=== PATIENT | female | born 1950 | race African-American/Black ===

== ENCOUNTER 2020-12-13 12:12 | Inpatient (IN) | payer MEDICARE, MEDICAID, SELFPAY ==
[2020-12-13] VITALS (91 sets, daily range): BP systolic 66–153; BP diastolic 25–120; PULSE 63–78; RESP 8–29; TEMP 36.5–36.7; O2SAT 93–100; BMI 32.8
--- NOTE | ~2020-12-13 | XR_ITS ---
XR chest 1V portable 12/13/2020 12:42 Indication: Cough and weakness Procedure: AP portable chest Comparison: 05/11/2019 Findings: There is left basilar airspace disease. Cardiomegaly. There is extensive atherosclerosis of the descending thoracic aorta. No edema or pneumothorax. Elevated right diaphragm appears chronic. Impression: 1: Left basilar airspace disease, atelectasis versus pneumonia. Reviewed, dictated and finalized at location B. VE TAILOR Impression: 1: Left basilar airspace disease, atelectasis versus pneumonia.
--- NOTE | 2020-12-13 13:50 | ED.GENADULT ---
HPI - General Adult General Chief complaint: Unspecified Stated complaint: low bp Time Seen by Provider: 12/13/20 12:19 History of Present Illness HPI narrative: Patient is a 70-year-old female who presents the emergency department with chief complaint of low blood pressure. The patient was sent from a local retirement after they noticed that her blood pressure was low today they also noticed that her blood sugars were reading high. The patient currently has no complaints but does have difficulty providing history due to a prior stroke. The patient currently has no complaints other than feeling cold. Related Data Home Medications Medication Instructions Recorded Confirmed acetaminophen [Tylenol] 650 mg PO BID PRN 12/13/20 12/13/20 atorvastatin 20 mg PO DAILY 12/13/20 12/13/20 baclofen 10 mg PO BID 12/13/20 12/13/20 buspirone 10 mg PO BID 12/13/20 12/13/20 clonazepam 0.5 mg PO BID 12/13/20 12/13/20 ergocalciferol (vitamin D2) 50,000 unit PO MONTHLY 12/13/20 12/13/20 fluticasone furoate-vilanterol 1 inh INHALATION DAILY 12/13/20 12/13/20 [Breo Ellipta] gabapentin 300 mg PO TID 12/13/20 12/13/20 hydrocodone-acetaminophen 1 tablet PO HS 12/13/20 12/13/20 insulin aspart U-100 [Novolog 18 unit SUBCUT TID 12/13/20 12/13/20 Flexpen U-100 Insulin] insulin detemir U-100 [Levemir 60 unit SUBCUT BID 12/13/20 12/13/20 FlexTouch U-100 Insuln] ipratropium-albuterol 3 ml INHALATION Q4H PRN 12/13/20 12/13/20 loratadine 10 mg PO DAILY PRN 12/13/20 12/13/20 mirtazapine 15 mg PO HS 12/13/20 12/13/20 ondansetron HCl [Zofran] 4 mg PO Q8H PRN 12/13/20 12/13/20 primidone 100 mg PO DAILY 12/13/20 12/13/20 sertraline 50 mg PO DAILY 12/13/20 12/13/20 Allergies Allergy/AdvReac Type Severity Reaction Status Date / Time iodine Allergy Unknown Unknown Verified 12/14/20 11:18 Penicillins Allergy Unknown Unknown Verified 12/14/20 11:18 Sulfa (Sulfonamide Allergy Unknown Unknown Verified 12/14/20 12:28 Antibiotics) sulfur dioxide Allergy Unknown Unknown Verified 12/14/20 12:28 Review of Systems Review of Systems: Narrative: A 10 system review of systems was completed on the patient and is negative except for what is stated in the HPI. Nursing and ancillary documentation was reviewed. [facility] Past Medical History Medical History (Updated 12/14/20 @ 14:40 by Alecia Cunningham MD) Breast cancer Left breast biopsy from 2017 was ER positive [place] positive with no evidence of treatment Chronic respiratory failure with hypoxia, on home O2 therapy 2 L nasal cannula CVA (cerebral vascular accident) Dementia Possibly vascular Folate deficiency anemia 2016 GERD (gastroesophageal reflux disease) Hyperlipidemia Insulin dependent diabetes mellitus Obstructive sleep apnea on CPAP Osteoporosis Severe recurrent major depressive disorder with psychosis Ulcerative colitis Surgical History Surgical History (Updated 12/14/20 @ 03:00 by Razia Fraser DO) Hx of cholecystectomy Laparoscopic cholecystectomy May 2019 Family History Family History Other Unknown family medical history Social History Social History (Updated 12/14/20 @ 03:04 by Razia Fraser DO) Social History: Patient is a long-term resident at [facility]. Primary care provider: John Rojas Code status: Full code Healthcare power of state attorney: Elaina Whitfield Smoking status: Never smoker Alcohol intake: never Substance use: never Substance use type: does not use Spiritual care concerns: No Comments Past medical history significant for CVA Social history patient is a resident of a local retirement Exam Narrative: Exam Narrative: GENERAL: Well-appearing, well-nourished, and in no acute distress. HEAD: Normocephalic, atraumatic. EYES: PERRLA and EOMI. ENT: Nares clear, no rhinorrhea or epistaxis. Mucous membranes moist. NECK: Supple. CHEST: Clear to auscultation
[2020-12-13] MEDS: ONDANSETRON INJ 4 MG/2 ML VIAL IV PUSH (13:55)
[2020-12-13] MEDS: SODIUM CHLORIDE 0.9% IV 1,000 ML 999 ML IV CONT ×3 (13:55→16:05)
[2020-12-13 13:58] LABS: Basophils Absolute Auto 0.1 K/mm3 (0.0-0.1); Basophils Percent Auto 0.7 % (0.2-1.2); Eosinophils Absolute Auto 0.1 K/mm3 (0-0.3); Eosinophils Percent Auto 0.4 % (0-4.4); Hematocrit 42.2 % (37.0-47.0); Hemoglobin 13.1 g/dL (12.0-15.0); Immature Granulocyte Absolute 0.16 K/mm3 (0.00-0.031); Immature Granulocyte Percent A 1.3 % (0-0.5); Lymphocytes Absolute Auto 1.29 K/mm3 (0.9-3.2); Lymphocytes Percent Auto 10.8 % (18.3-44.2); Mean Corpuscular Hemoglobin 28.8 pg (26-34); Mean Corpuscular Volume 92.7 fl (80-100); Mean Platelet Volume 11.3 fl (7.4-10.4); Monocytes Absolute Auto 0.4 K/mm3 (0.1-0.6); Monocytes Percent Auto 3.7 % (2.6-8.5); Neutrophils Absolute Auto 9.9 K/mm3 (1.3-6.7); Neutrophils Percent Auto 83.1 % (45.5-73.1); Platelet Count Result 222 k/mm3 (150-375); Red Blood Count 4.55 M/mm3 (4.2-5.4); Red Cell Distribution Width 14.9 % (11.5-14.5); White Blood Count 11.9 K/mm3 (4.5-10.0)
[2020-12-13 14:12] LABS: Lactic Acid Reflex 2.9 mmol/L (0.7-2.1)
[2020-12-13 15:08] LABS: Alanine Aminotransferase 35 U/L (4-35); Albumin Level 3.2 g/dL (3.5-5.1); Alkaline Phosphatase 75 U/L (38-126); Anion Gap 6 mmol/L (8-16); Aspartate Amino Transferase 52 U/L (14-36); Bilirubin,Total 0.3 mg/dL (0.2-1.3); Blood Urea Nitrogen 15 mg/dL (7-17); Calcium 8.1 mg/dL (8.4-10.2); Carbon Dioxide 27 mmol/L (22-30); Chloride 106 mmol/L (98-107); Estimated CRCL calculation 44 ml/min; Estimated Glomerular Filt Rate > 60; Glucose 289 mg/dL (65-105); Magnesium 1.7 mg/dL (1.6-2.3); Sodium 139 mmol/L (137-145)
[2020-12-13 15:12] LABS: Potassium 4.2 mmol/L (3.4-5.0)
[2020-12-13 15:24] LABS: Add Urine Microscopic? YES; Appearance Urine Cloudy (Clear); Bacteria Urine 3+ /hpf; Bilirubin Urine Negative (Negative); Blood Urine Negative (Negative); Color Urine Yellow (Yellow); Glucose Urine UA Negative (Negative); Ketones Urine Negative (Negative); Leukocyte Esterase Ur 3+ LEU/UL (Negative); Mucus Urine Rare /lpf; Nitrate Urine Negative (Negative); Protein Urine Negative (Negative); Squamous Epithelial Cell Urine Moderate /hpf (Few); Urobilinogen Urine Negative mg/dL (<2.0); WBC Urine >75 /hpf
[2020-12-13 16:56] LABS: Reflex Lactic Acid Yes or No Add Lactic
[2020-12-13] MEDS: SODIUM CHLORIDE 0.9% IV 1,000 ML 125 ML IV CONT (23:36)
[2020-12-14] VITALS (11 sets, daily range): BP systolic 103–141; BP diastolic 42–76; PULSE 68–92; RESP 16–22; TEMP 35.6–36.4; O2SAT 95–100
--- NOTE | 2020-12-14 01:51 | ADMGEN ---
This patient, Mehreen Collins, was admitted to IMU Room 206-02. Patient/family oriented to hospital policies and general routines including ID bracelet, bed and alarms, visiting hours, pain management, procedures, bathroom and other care routines, personal items, smoking policy, room service/diet, and visiting hours. Information on how to activate the Rapid Response Team has been discussed. Patient/Family are encouraged to report perceived risks to care and to ask questions if they do not understand what they are told or what they should do.
--- NOTE | 2020-12-14 02:36 | PM.IMHP ---
H&P: HPI History of Present Illness Date/Time: 12/14/20 01:00 Chief Complaint: Low blood pressure Narrative: Mehreen Collins is a 70 year old female with a past medical history of recurrent UTIs, dementia, CVA, ulcerative colitis, major depressive disorder with psychotic symptoms and type 2 diabetes mellitus who presented to the ER from [facility] via EMS due to low blood pressures. Patient's blood pressure was 77/39 on arrival to the ER. The patient has no acute complaints. She denies any dysuria. She cannot tell me if she has been having any hematuria. Denies any nausea or vomiting. Her complaint at this time is that she is just freezing. She has not had any fevers. She has chronic low back pain that is unchanged from baseline. She does not report any changes in the frequency of her bowels. She is dependent upon staff at the [place] for activities of daily living. She denies any chest pain or shortness of breath. She has not been having any cough or congestion. She was last hospitalized May 2019 due to sepsis from UTI. She is a fair historian and is alert and oriented x3 the time of my evaluation. However she later told the nurse that the year was 2031 and she was very concerned because she was commenced that her roommate was sleeping in the same bed with her. The patient has difficulty providing information due to prior stroke and some expressive deficits. Review of Systems Review of Systems: Narrative: 12 systems were reviewed with pertinent positives and negatives per HPI. Except as documented in the HPI, all other systems were reviewed and are negative. [facility] Past Medical History Medical History (Updated 12/14/20 @ 03:48 by Razia Fraser DO) Breast cancer Left breast biopsy from 2016 was ER positive [place] positive with no evidence of treatment Chronic respiratory failure with hypoxia, on home O2 therapy 2 L nasal cannula CVA (cerebral vascular accident) Dementia Possibly vascular Folate deficiency anemia 2016 GERD (gastroesophageal reflux disease) Hyperlipidemia Insulin dependent diabetes mellitus Obstructive sleep apnea on CPAP Osteoporosis Severe recurrent major depressive disorder with psychosis Ulcerative colitis Surgical History Surgical History (Updated 12/14/20 @ 03:00 by Razia Fraser DO) Hx of cholecystectomy Laparoscopic cholecystectomy May 2019 Family History Family History Other Unknown family medical history Social History Social History (Updated 12/14/20 @ 03:04 by Razia Fraser DO) Social History: Patient is a long-term resident at [facility]. Primary care provider: John Rojas Code status: Full code Healthcare power of patent prosecution attorney: Elaina Whitfield Smoking status: Never smoker Alcohol intake: never Substance use: never Substance use type: does not use Spiritual care concerns: No Meds Home Medications and Allergies Home Medications Medication Instructions Recorded Confirmed Type acetaminophen [Tylenol] 650 mg PO BID PRN 12/13/20 12/13/20 History atorvastatin 20 mg PO DAILY 12/13/20 12/13/20 History baclofen 10 mg PO BID 12/13/20 12/13/20 History buspirone 10 mg PO BID 12/13/20 12/13/20 History clonazepam 0.5 mg PO BID 12/13/20 12/13/20 History ergocalciferol (vitamin D2) 50,000 unit PO MONTHLY 12/13/20 12/13/20 History fluticasone furoate-vilanterol 1 inh INHALATION DAILY 12/13/20 12/13/20 History [Breo Ellipta] gabapentin 300 mg PO TID 12/13/20 12/13/20 History hydrocodone-acetaminophen 1 tablet PO HS 12/13/20 12/13/20 History insulin aspart U-100 [Novolog 18 unit SUBCUT TID 12/13/20 12/13/20 History Flexpen U-100 Insulin] insulin detemir U-100 [Levemir 60 unit SUBCUT BID 12/13/20 12/13/20 History FlexTouch U-100 Insuln] ipratropium-albuterol 3 ml INHALATION Q4H PRN 12/13/20 12/13/20 History loratadine 10 mg PO DAILY PRN 12/13/20 12/13/20 Hist
[2020-12-14 05:09] LABS: Hematocrit 35.8 % (37.0-47.0); Hemoglobin 10.8 g/dL (12.0-15.0); Mean Corpuscular HGB Conc 30.2 g/dl (32-36); Mean Corpuscular Hemoglobin 28.1 pg (26-34); Mean Platelet Volume 10.2 fl (7.4-10.4); Platelet Count Result 211 k/mm3 (150-375); Red Blood Count 3.85 M/mm3 (4.2-5.4); White Blood Count 10.5 K/mm3 (4.5-10.0)
[2020-12-14 05:53] LABS: Anion Gap 4 mmol/L (8-16); Blood Urea Nitrogen 13 mg/dL (7-17); Carbon Dioxide 27 mmol/L (22-30); Chloride 109 mmol/L (98-107); Estimated CRCL calculation 87 ml/min; Estimated Glomerular Filt Rate > 60; Glucose 137 mg/dL (65-105); Potassium 4.2 mmol/L (3.4-5.0); Sodium 140 mmol/L (137-145)
[2020-12-14 05:55] LABS: Hemoglobin A1C 8.3 % (<5.7)
--- NOTE | 2020-12-14 07:31 | PC.NURSE ---
Dr. Cunningham notified of critical trop on 17.400. Trop originally reported as normal of <0.012 at 1445 on 12/13/20. Critical value called this AM at 0724, with note attached of original value reported of <0.012. Called Jeannette, in lab and she's going to look into it . Notified Dr. Cunningham of situation. New order to draw another trop stat, so we can see what is going on with patient. If trop is still elevated, consult cardiology
[2020-12-14 07:36] LABS: Troponin I < 0.012 ng/mL (0.000-0.034)
--- NOTE | 2020-12-14 07:38 | PC.NURSE ---
Lab called with critical blood glucose. Finger stick also showed critical blood glucose of 51. Pt received breakfast tray at time of finger stick. Will allow pt to eat and recheck finger stick after pt has eaten tray. Treat as necessary per repeat finger stick
[2020-12-14 08:01] LABS: Troponin I < 0.012 ng/mL (0.000-0.034)
[2020-12-14] MEDS: GABAPENTIN 300 MG CAPSULE PO ×3 (08:44→17:09)
[2020-12-14] MEDS: SODIUM CHLORIDE 0.9% IV 1,000 ML 125 ML IV CONT (08:44)
[2020-12-14] MEDS: PRIMIDONE 50 MG TABLET 100 MG PO (08:44)
[2020-12-14] MEDS: BACLOFEN 10 MG TABLET PO ×2 (08:44→17:09)
[2020-12-14] MEDS: ENOXAPARIN 40 MG/0.4 ML SYRINGE SUB-Q (08:44)
[2020-12-14] MEDS: busPIRone HCL 10 MG TABLET PO ×2 (08:45→17:08)
[2020-12-14] MEDS: ATORVASTATIN 20 MG TABLET PO (08:45)
[2020-12-14] MEDS: SERTRALINE HCL 50 MG TABLET PO (08:45)
[2020-12-14] MEDS: INSULIN DETEMIR 100 UNITS/ML 60 UNITS SUB-Q ×2 (08:52→17:13)
[2020-12-14] MEDS: clonazePAM (*CRX) 0.5 MG TABLET PO ×2 (08:52→17:09)
[2020-12-14] MEDS: INSULIN ASPART (*BKC) 100 UNITS/ML 18 UNITS SUB-Q ×2 (08:52→12:32)
[2020-12-14 09:09] LABS: Glucose Point of Care 125 (65-105)
[2020-12-14 12:32] LABS: Glucose Point of Care 131 (65-105)
[2020-12-14] MEDS: LORATADINE 10 MG TABLET PO (12:32)
--- NOTE | 2020-12-14 14:32 | PM.IMPN ---
Progress Note: A&P Assessment and Plan (1) Acute UTI: Code(s): N39.0 - Urinary tract infection, site not specified Status: Acute Assessment and Plan: Treat with iv antibiotics, await cultures hopeful Dc donovan Am. 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 insulin use: with longwall machine operator helper use Qualified Code(s): E11.65 - Type 2 diabetes mellitus with hyperglycemia; Z79.4 - demo coordinator (current) use of insulin Code(s): E11.65 - Type 2 diabetes mellitus with hyperglycemia Status: Chronic Assessment and Plan: Accuchecks, SSI, continue home Levemir and mealtime bolus insulin (4) Obstructive sleep apnea on CPAP: Code(s): G47.33 - Obstructive sleep apnea (adult) (pediatric); Z99.89 - Dependence on other enabling machines and devices Status: Inactive Assessment and Plan: Continue pts home CPAP Subjective Date/time seen: 12/14/20 14:32 Exam Narrative: Exam Narrative: General: Obese Respiratory: Clear Cardiovascular: Regular rate, regular rhythm, 2+ bilateral radial pedal pulses Gastrointestinal: Soft, NT Skin: No pallor, no jaundice, normal temperature to palpation Musculoskeletal: No clubbing, no cyanosis, 1+ pitting edema Neurological: Alert oriented x3, speech is slow, his speech is high pitched and loud Psychiatric: Normal mood Objective Data Vital Signs Vital Signs: Vital Signs - 24 hr 12/13/20 14:45 12/13/20 14:46 12/13/20 15:00 Temperature Pulse Rate 70 68 69 Respiratory Rate 25 H 24 H 17 Blood Pressure 91/43 L Pulse Oximetry 99 99 98 12/13/20 15:01 12/13/20 15:02 12/13/20 15:08 Temperature Pulse Rate 70 69 70 Respiratory Rate 24 H 22 H 20 Blood Pressure 81/42 L 90/46 L Pulse Oximetry 98 98 99 12/13/20 15:15 12/13/20 15:16 12/13/20 15:30 Temperature Pulse Rate 67 67 65 Respiratory Rate 24 H 23 H 23 H Blood Pressure 87/49 L Pulse Oximetry 98 98 99 12/13/20 15:31 12/13/20 15:45 12/13/20 15:46 Temperature Pulse Rate 65 66 65 Respiratory Rate 22 H 22 H 22 H Blood Pressure 79/36 L 76/40 L Pulse Oximetry 100 99 98 12/13/20 15:55 12/13/20 15:56 12/13/20 15:59 Temperature Pulse Rate 69 68 70 Respiratory Rate 20 23 H 22 H Blood Pressure 84/60 L 75/32 L Pulse Oximetry 98 98 99 12/13/20 16:00 12/13/20 16:01 12/13/20 16:15 Temperature Pulse Rate 68 67 68 Respiratory Rate 23 H 21 H 23 H Blood Pressure 78/31 L Pulse Oximetry 99 98 96 12/13/20 16:16 12/13/20 16:30 12/13/20 16:31 Temperature Pulse Rate 67 67 Respiratory Rate 21 H 23 H 23 H Blood Pressure 66/30 L 68/29 L Pulse Oximetry 99 94 99 12/13/20 16:41 12/13/20 16:43 12/13/20 16:45 Temperature Pulse Rate 69 Respiratory Rate 21 H 20 Blood Pressure 66/25 L 90/40 L Pulse Oximetry 98 98 12/13/20 16:46 12/13/20 17:00 12/13/20 17:01 Temperature Pulse Rate Respiratory Rate 22 H 21 H 21 H Blood Pressure 70/30 L 83/34 L Pulse Oximetry 99 100 99 12/13/20 17:15 12/13/20 17:18 12/13/20 17:30 Temperature Pulse Rate Respiratory Rate 21 H 22 H 10 L Blood Pressure 68/35 L Pulse Oximetry 99 98 99 12/13/20 17:31 12/13/20 17:45 12/13/20 17:46 Temperature Pulse Rate Respiratory Rate 19 8 L Blood Pressure 123/78 120/46 L Pulse Oximetry 99 99 99 12/13/20 18:00 12/13/20 18:01 12/13/20 18:15 Temperature Pulse Rate Respiratory Rate 20 18 17 Blood Pressure 101/53 L Pulse Oximetry 99 98 96 12/13/20 18:16 12/13/20 18:17 12/13/20 18:19 Temperature Pulse Rate Respiratory Rate
--- NOTE | 2020-12-14 16:37 | PC.NURSE ---
Pt transferred into room 243 via bed from IMU, reviewed plan of care, pt oriented to new room and environment
--- NOTE | 2020-12-14 16:40 | PC.NURSE ---
This patient, Mehreen Collins, was transferred to [[id number]] on 12/14/20 at 1640. Personal belongings sent with patient. Report given to [KYLE Chacon @ [phone] ]. Appropriate documentation sent with patient.
[2020-12-14] MEDS: ACETAMINOPHEN 325 MG TABLET 650 MG PO (17:08)
[2020-12-14 17:27] LABS: Glucose Point of Care 89 (65-105)
[2020-12-14] MEDS: HYDROcodone/acetaminophen (*CRX) 5-325 MG TABLET 1 TAB PO (20:54)
[2020-12-14] MEDS: MIRTAZAPINE 15 MG TABLET PO (20:55)
[2020-12-14 21:32] LABS: Glucose Point of Care 199 (65-105)
[2020-12-15] VITALS (8 sets, daily range): BP systolic 130–139; BP diastolic 50–58; PULSE 51–78; RESP 16–22; TEMP 36–36.5; O2SAT 94–100
[2020-12-15] MEDS: ACETAMINOPHEN 325 MG TABLET 650 MG PO ×2 (06:34→15:35)
[2020-12-15 07:48] LABS: Glucose Point of Care 74 (65-105)
[2020-12-15] MEDS: ENOXAPARIN 40 MG/0.4 ML SYRINGE SUB-Q (08:29)
[2020-12-15] MEDS: clonazePAM (*CRX) 0.5 MG TABLET PO ×2 (08:30→17:07)
[2020-12-15] MEDS: ATORVASTATIN 20 MG TABLET PO (08:30)
[2020-12-15] MEDS: LORATADINE 10 MG TABLET PO (08:30)
[2020-12-15] MEDS: busPIRone HCL 10 MG TABLET PO ×2 (08:30→17:08)
[2020-12-15] MEDS: PRIMIDONE 50 MG TABLET 100 MG PO (08:31)
[2020-12-15] MEDS: BACLOFEN 10 MG TABLET PO ×2 (08:31→17:12)
[2020-12-15] MEDS: SERTRALINE HCL 50 MG TABLET PO (08:31)
[2020-12-15] MEDS: GABAPENTIN 300 MG CAPSULE PO ×3 (08:31→17:07)
--- NOTE | 2020-12-15 09:34 | PCSTNOTE ---
Please refer to the Bedside Swallow Evaluation in the EMR. Please note, silent aspiration cannot be ruled out at bedside.
--- NOTE | 2020-12-15 11:42 | PM.IMPN ---
Progress Note: A&P Assessment and Plan (1) Acute UTI: Code(s): N39.0 - Urinary tract infection, site not specified Status: Acute Assessment and Plan: Treat with iv antibiotics, await cultures hopeful Dc soon culture shows ecoli awaiting sensitivity (2) Sepsis: Qualifiers: Sepsis acute organ dysfunction status: unspecified Sepsis type: sepsis due to unspecified organism Qualified Code(s): A41.9 - Sepsis, unspecified organism Code(s): A41.9 - Sepsis, unspecified organism Status: Acute Assessment and Plan: BP is better continue iv rocephin awaiting UC (3) Type 2 diabetes mellitus with hyperglycemia: Qualifiers: Diabetes mellitus supervisor intermediates insulin use: with mcfp use Qualified Code(s): E11.65 - Type 2 diabetes mellitus with hyperglycemia; Z79.4 - shelter (current) use of insulin Code(s): E11.65 - Type 2 diabetes mellitus with hyperglycemia Status: Chronic Assessment and Plan: Accuchecks, SSI, continue home Levemir and mealtime bolus insulin (4) Obstructive sleep apnea on CPAP: Code(s): G47.33 - Obstructive sleep apnea (adult) (pediatric); Z99.89 - Dependence on other enabling machines and devices Status: Inactive Assessment and Plan: Continue pts home CPAP Subjective Date/time seen: 12/15/20 11:42 Young is a 70 year old female with a past medical history of recurrent UTIs, dementia, CVA, ulcerative colitis, major depressive disorder with psychotic symptoms and type 2 diabetes mellitus who presented to the ER from [facility] via EMS due to low blood pressures. Pt is found to have a UTI awaiting culture and sensitivities. Pt has a high pitched voice, which is her baseline, pt has not had a bowel movement for few days. Review of Systems Review of Systems: All systems reviewed & are unremarkable except as noted in HPI and below Exam Narrative: Exam Narrative: General: Obese Respiratory: Clear Cardiovascular: Regular rate, regular rhythm, 2+ bilateral radial pedal pulses Gastrointestinal: Soft, NT, mildly distended, BS present Skin: No pallor, no jaundice, normal temperature to palpation Musculoskeletal: No clubbing, no cyanosis, 1+ pitting edema Neurological: Alert oriented x3, speech is slow, his speech is high pitched and loud Psychiatric: Normal mood Objective Data Vital Signs Vital Signs: Vital Signs - 24 hr 12/14/20 16:19 12/14/20 16:35 12/14/20 20:00 Temperature 35.6 C L 36.1 C L Pulse Rate 77 77 Respiratory Rate 22 H 20 Blood Pressure 134/54 L 136/76 Pulse Oximetry 98 100 100 12/14/20 20:10 12/14/20 20:51 12/15/20 02:32 Temperature 36.1 C L Pulse Rate 70 73 Respiratory Rate 18 16 22 H Blood Pressure 141/53 H Pulse Oximetry 99 97 12/15/20 05:48 12/15/20 09:47 Temperature 36.0 C L Pulse Rate 66 Respiratory Rate 16 Blood Pressure 130/51 L Pulse Oximetry 100 94 Intake/Output Intake/Output: Intake & Output 12/12/20 12/13/20 12/14/20 12/15/20 23:59 23:59 23:59 23:59 Intake Total 3050 2749.1 586 Output Total 200 Balance 3050 2549.1 586 Meds/Results Medications: Active Medications Generic Name Dose Route Start Last Admin Trade Name Freq PRN Reason Stop Dose Admin Acetaminophen 650 mg 12/14/20 02:39 12/15/20 06:34 Acetaminophen 325 Mg Tablet PO 650 mg Q6H PRN Administration pain 1-10 and fever Hydrocodone Bitart/Acetaminophen 1 tab 12/14/20 21:00 12/14/20 20:54 Hydrocodone/Acetaminophen (*Crx) 5-325 Mg Tablet PO 1 tab HS YONG Administration Albuterol 2.5 mg 12/14/20 03:11 Albuterol Sulfate Neb 2.5 Mg/3 Ml Inh INHALATION Q4HRT PRN sob Atorvastatin Calcium 20 mg 12/14/20 09:00 12/15/20 08:30 Atorvastatin 20 Mg Tablet PO 20 mg DAILY YONG Administration Baclofen 10 mg 12/14/20 09:00 12/15/20 08:31 Baclofen 10 Mg Tablet PO 10 mg BID YONG Administration Budesonide/F
[2020-12-15 11:53] LABS: Glucose Point of Care 146 (65-105)
[2020-12-15 12:07] LABS: Glucose Point of Care 139 (65-105)
[2020-12-15] MEDS: INSULIN ASPART (*BKC) 100 UNITS/ML 18 UNITS SUB-Q ×2 (12:43→17:20)
[2020-12-15] MEDS: BISACODYL 10 MG SUPPOSITORY RECTAL (12:51)
--- NOTE | 2020-12-15 14:33 | PC.NURSE ---
On 12/15/20, the student, [ Denise Galvez], provided care and completed [facility] documentation on this patient. I have reviewed the student's documentation and agree with the findings.
[2020-12-15] MEDS: ALBUTEROL SULFATE NEB 2.5 MG/3 ML INH INHALATION (16:55)
[2020-12-15] MEDS: IPRATROPIUM BR 0.02% INH SOLN 0.5 MG/2.5 ML VIAL INHALATION (16:57)
[2020-12-15] MEDS: ALBUTEROL SULFATE NEB 2.5 MG/0.5 ML INH (16:57)
[2020-12-15] MEDS: INSULIN DETEMIR 100 UNITS/ML 30 UNITS SUB-Q (17:21)
[2020-12-15 18:13] LABS: Glucose Point of Care 124 (65-105)
[2020-12-15] MEDS: HYDROcodone/acetaminophen (*CRX) 5-325 MG TABLET 1 TAB PO (20:35)
[2020-12-15] MEDS: MIRTAZAPINE 15 MG TABLET PO (20:36)
[2020-12-15 20:53] LABS: SARS-CoV-2 RNA PCR Negative
[2020-12-15 21:33] LABS: Glucose Point of Care 113 (65-105)
[2020-12-16] MEDS: ACETAMINOPHEN 325 MG TABLET 650 MG PO ×2 (04:56→10:56)
[2020-12-16 05:00] VITALS: BP 152/73; PULSE 75; RESP 18; TEMP 36.3; O2SAT 97
[2020-12-16 08:04] LABS: Glucose Point of Care 112 (65-105)
--- NOTE | 2020-12-16 08:34 | PM.DS ---
DS: Admitting Diagnosis Admitting Diagnosis Admitting Diagnosis: Low blood pressure DS: Discharge Diagnosis Discharge Diagnosis (1) Acute UTI: Code(s): N39.0 - Urinary tract infection, site not specified Status: Acute Assessment and Plan: Treat with iv rcephin, culture shows ecoli sensitive to nitrofurantoin (2) Sepsis: Qualifiers: Sepsis acute organ dysfunction status: unspecified Sepsis type: sepsis due to unspecified organism Qualified Code(s): A41.9 - Sepsis, unspecified organism Code(s): A41.9 - Sepsis, unspecified organism Status: Resolved Assessment and Plan: BP is better (3) Type 2 diabetes mellitus with hyperglycemia: Qualifiers: 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 insulin 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: with fdc use Qualified Code(s): E11.65 - Type 2 diabetes mellitus with hyperglycemia; Z79.4 - longterm (current) use of insulin Code(s): E11.65 - Type 2 diabetes mellitus with hyperglycemia Status: Chronic Assessment and Plan: Accuchecks, SSI, reduce Levemir and mealtime bolus insulin (4) Obstructive sleep apnea on CPAP: Code(s): G47.33 - Obstructive sleep apnea (adult) (pediatric); Z99.89 - Dependence on other enabling machines and devices Status: Inactive Assessment and Plan: Continue pts home CPAP DS: Summary Hospital Course Hospital Course: Brandi Collins is a 70 year old female with a past medical history of recurrent UTIs, dementia, CVA, ulcerative colitis, major depressive disorder with psychotic symptoms and type 2 diabetes mellitus who presented to the ER from [facility] via EMS due to low blood pressures. Bp were corrected with fluids, pt was found to have UTI treated with IV Rocephin or 3 days and transitioned to nitrofurantoin.Troponin was reported high but this was a error and was rechecked to be normal. Pt is stable on day of discharge. UC shows Ecoli sensitive to nitrofurantoin. Time Spent with Patient Time attestation: Total time spent providing and/or coordinating discharge services:40 minutes on day of discharge Exam Narrative: Exam Narrative: General: Obese Respiratory: Clear Cardiovascular: Regular rate, regular rhythm, 2+ bilateral radial pedal pulses Gastrointestinal: Soft, NT, mildly distended, BS present Skin: No pallor, no jaundice, normal temperature to palpation Musculoskeletal: No clubbing, no cyanosis, 1+ pitting edema Neurological: Alert oriented x3, speech is slow, his speech is high pitched and loud Psychiatric: Normal mood DS: Data Data Completed and Pending Labs on day of discharge: Labs from last 24 hours 12/16/20 12/15/20 12/15/20 07:58 20:40 17:14 POC Capillary Glucose 112 H 113 H 124 H SARS-CoV-2 RNA (RT-PCR) 12/15/20 12/15/20 12/15/20 12:04 11:42 00:59 POC Capillary Glucose 139 H 146 H SARS-CoV-2 RNA (RT-PCR) Negative Preliminary micro results at discharge 12/13/20 13:45 Blood Culture - Preliminary Blood 12/13/20 14:43 Blood Culture - Preliminary Blood Discharge Plan Discharge Attending physician on discharge: Alecia Cunningham Discharging Clinician: Alecia Cunningham Patient Disposition: [place] Residential/Asst Living Activity: as tolerated Diet: diabetic Discharge Instructions: Per Care Coordination, [facility]. Patient Instructions: Antibiotic Form Stand Alone Forms: General Discharge Information Follow-up/Referrals: Bob,John Wiggins MD [Primary Care Provider] - Discharge Medications: New polyethylene glycol 3350 [Miralax] 17 gram Powder In Packet 17 g PO QAM Qty: 30 RF: 0 nitrofurantoin macrocrystal 100 mg capsule 100 mg PO Q12H Qty: 28 RF: 0 Continued atorvastatin 20 mg tablet 20 mg PO DAILY RF: 0 clonazepam 0.5 mg tablet 0.5 mg PO BID RF: 0 baclofen 10 mg tablet 10 mg PO BID RF: 0 buspirone 10 mg tablet 10 mg PO BID RF: 0 gabape
[2020-12-16] MEDS: BACLOFEN 10 MG TABLET PO ×2 (08:46→16:53)
[2020-12-16] MEDS: polyethylene glycoL 3350 17 GM POWD.PACK PO (08:46)
[2020-12-16] MEDS: PRIMIDONE 50 MG TABLET 100 MG PO (08:48)
[2020-12-16] MEDS: ATORVASTATIN 20 MG TABLET PO (08:48)
[2020-12-16] MEDS: ENOXAPARIN 40 MG/0.4 ML SYRINGE SUB-Q (08:48)
[2020-12-16] MEDS: busPIRone HCL 10 MG TABLET PO ×2 (08:49→16:49)
[2020-12-16] MEDS: GABAPENTIN 300 MG CAPSULE PO ×3 (08:49→16:50)
[2020-12-16] MEDS: SERTRALINE HCL 50 MG TABLET PO (08:49)
[2020-12-16 08:50] VITALS: RESP 18; O2SAT 97
[2020-12-16] MEDS: clonazePAM (*CRX) 0.5 MG TABLET PO ×2 (08:50→16:53)
[2020-12-16] MEDS: INSULIN DETEMIR 100 UNITS/ML 30 UNITS SUB-Q ×2 (09:07→16:53)
[2020-12-16 11:49] LABS: Glucose Point of Care 145 (65-105)
[2020-12-16 14:00] VITALS: BP 148/62; PULSE 78; RESP 27; TEMP 36.3; O2SAT 98
[2020-12-16 16:47] LABS: Glucose Point of Care 163 (65-105)
[2020-12-16] MEDS: HYDROcodone/acetaminophen (*CRX) 5-325 MG TABLET 1 TAB PO (20:28)
[2020-12-16] MEDS: MIRTAZAPINE 15 MG TABLET PO (20:28)
[2020-12-16 20:53] LABS: Glucose Point of Care 210 (65-105)
[2020-12-16 22:00] VITALS: BP 121/50; PULSE 85; RESP 18; TEMP 36.8; O2SAT 94
[2020-12-17 01:54] VITALS: O2SAT 94
[2020-12-17 05:00] VITALS: BP 154/92; PULSE 58; RESP 18; TEMP 36.5; O2SAT 98
== END 2020-12-17 05:10 | DRG 872 ==
LOC: ANHED 16:58 → ANHIMU 12-14 13:07 → ANH2MED 12-20 17:09 → ANHIMU 12-20 17:09
PROVIDERS: Internal Medicine; Physician Assistant; Admitting Provider Family Medicine; Emergency Provider Emergency Medicine; PCP General Practice; Visit Provider Family Medicine
DX: A41.9 Sepsis, unspecified organism (principal); N39.0 Urinary tract infection, site not specified; J96.11 Chronic respiratory failure with hypoxia; F33.3 Major depressive disorder, recurrent, severe with psychotic symptoms; F03.90 Unspecified dementia, unspecified severity, without behavioral disturbance, psychotic disturbance, mood disturbance, and anxiety; B96.20 Unspecified Escherichia coli [E. coli] as the cause of diseases classified elsewhere; Z20.822 Contact with and (suspected) exposure to COVID-19; E11.65 Type 2 diabetes mellitus with hyperglycemia; G47.33 Obstructive sleep apnea (adult) (pediatric); K21.9 Gastro-esophageal reflux disease without esophagitis; E78.5 Hyperlipidemia, unspecified; M81.0 Age-related osteoporosis without current pathological fracture; Z79.4 Long term (current) use of insulin; Z79.899 Other long term (current) drug therapy; Z85.3 Personal history of malignant neoplasm of breast; Z86.73 Personal history of transient ischemic attack (TIA), and cerebral infarction without residual deficits; Z87.19 Personal history of other diseases of the digestive system; Z88.1 Allergy status to other antibiotic agents; Z88.2 Allergy status to sulfonamides; Z99.81 Dependence on supplemental oxygen; Z99.89 Dependence on other enabling machines and devices
CPT/HCPCS: 36415; 71045; 80048; 80053; 81001; 82948; 83036; 83605; 83735; 84484; 85025; 85027; 87040; 87077; 87086; 87088; 87186; 92610; 94640; 96361; 96365; 96375; 99285; A9270; C1751; C9803; J0696; J1650; J1815; J2405; J7030; U0003; U0005

== ENCOUNTER 2021-09-05 09:09 | Inpatient (IN) | payer OTHER, SELFPAY ==
[2021-09-05] VITALS (32 sets, daily range): BP systolic 123–162; BP diastolic 56–109; PULSE 82–112; RESP 16–32; TEMP 36.2–36.5; O2SAT 92–100; BMI 27.2
--- NOTE | ~2021-09-05 | XR_ITS ---
EXAMINATION: XR abdomen NG/feed tube insert EXAM DATE: 09/05/2021 09:42 INDICATION: GI bleed, NG tube insertion.. TECHNIQUE: Frontal projection(s) of the abdomen for interpretation. Comparison is made to prior exami nation from 2017. FINDINGS: Feeding tube tip and side-port project over gastric antrum, adequate. There are multiple l oops of moderately distended air-filled small bowel, probably ileus given history provided. Obstructi on not excludable. Small amount of left basilar atelectasis or infiltrate. There is no organomegaly. Calcification along the descending thoracic aorta. IMPRESSION: 1. Nasogastric tube in position. 2. Moderately distended small bowel, ileus or less likely small bowel obstruction. Reviewed, dictated and finalized at location A. IMPRESSION: 1. Nasogastric tube in position. 2. Moderately distended small bowel, ileus or less likely small bowel obstruct ion.
--- NOTE | ~2021-09-05 | XR_ITS ---
XR abdomen/kub 1V DATE: 09/08/2021 18:26 INDICATION: Abdominal pain TECHNIQUE: Portable supine AP views COMPARISON: 09/23/2021 upper gastrointestinal series 09/05/2021 CT abdomen pelvis FINDINGS: Severe descending thoracic aortic calcification. Heart size appears within normal limits. Status post cholecystectomy. Barium contrast material is noted primarily in the colon. Colonic diverticula are noted. There is gaseous distention of multiple nondilated small bowel segments. IMPRESSION: Status post cholecystectomy Diverticulosis of the colon Nondilated gas containing small bowel segments,, suggesting ileus Reviewed, dictated and finalized at Location [facility]. Reviewed, dictated and finalized at location A.
--- NOTE | ~2021-09-05 | XR_ITS ---
EXAMINATION: XR UGI water soluble w sbs EXAM DATE: 09/06/2021 12:12 INDICATION: Dilated bowel. 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 Omnipaque/water soluble solution administered for upper GI and small bowel exam performed by radiologist Pedro Bah M.D.. Pulsed dose reduction fluoroscopy was used with fluoroscopic time of less than 0.1 minutes. The DAP for this procedure was 20 Gycm2. A total of 15 images obtained for the exam. Correlation is made to CT abdomen pelvis from yesterday. FINDINGS: The stomach is unremarkable. By the 1 hour projection, contrast is within multiple loops of normal calibered jejunum. By the 2 hour projection contrast as a multiple loops of mildly dilated mi d ileum. By the 3 hour image contrast has entered the cecum. Ileal and jejunal fold patterns are norm al. There is no small bowel wall thickening or mass effect displacing small bowel. There are no int raluminal filling defects identified. Terminal ileal region unremarkable. Contrast reached the colo n between 2.5 and 3 hours, mildly delayed. A 3.5 hour image was also obtained which demonstrated mor e contrast within the cecum. IMPRESSION: Mildly dilated mid ileum, mildly delayed transit time of 2.5-3 hours, probably ileus. Lo w-grade partial obstruction not excludable. Reviewed, dictated and finalized at location A. IMPRESSION: Mildly dilated mid ileum, mildly delayed transit time of 2.5-3 jair rs, probably ileus. Low-grade partial obstruction not excludable.
--- NOTE | ~2021-09-05 | CT_ITS ---
EXAMINATION: CT abdomen pelvis wo con EXAM DATE: 09/05/2021 10:48 INDICATION: abd pain, GI bleeding (upper), distention. TECHNIQUE: Spiral CT of the abdomen and pelvis was performed without contrast. Axial, coronal and s agittal images of the abdomen and pelvis were reviewed. The dose-length product (DLP) for this exami nation was 1253.35 mGy-cm. The exposure was tailored according to patient size (auto mA exposure con trol), and iterative reconstruction (ASIR) was used as additional dose reduction technique. Compariso n is made to prior examination from 05/21/2019. FINDINGS: The liver, spleen, adrenal glands and pancreas are unremarkable. Gallbladder is unremarkab le. No biliary obstruction. There is no nephrolithiasis or hydronephrosis. The uterus is not iden tified and has likely been surgically resected. The bladder is unremarkable. There is no retroperit zhou or pelvic lymphadenopathy. There is moderate scattered arteriosclerotic disease. There are no findings to suggest appendicitis. There is a feeding tube in position. There is moderat celia distended small bowel with air and fluid, no transition point. Appearance suggest ileus. There is mild sigmoid colonic diverticulosis. There is no adjacent inflammatory change to suggest diverticul itis. There is expected amount of colonic stool. No free intraperitoneal gas. The heart is normal in size. There are no pericardial or pleural effusions. Bibasilar subsegmental atelectasis. Calcif ied distal abdominal aorta. There are no osteoblastic or osteolytic lesions identified. IMPRESSION: 1. Moderately distended small bowel without discrete transition point, suggesting ileus rather than obstruction. Feeding tube in position. 2. Bibasilar subsegmental atelectasis. 3. Mild sigmoid diverticulosis. Reviewed, dictated and finalized at location A. IMPRESSION: 1. Moderately distended small bowel without discrete transition point, suggest ing ileus rather than obstruction. Feeding tube in position. 2. Bibasilar subsegmental atelectasis. 3. Mild sigmoid diverticulosis.
--- NOTE | 2021-09-05 09:32 | ED.GIBLEED ---
HPI - GI Bleed General Chief complaint: GI Bleed Stated complaint: ?GI BLEED Source: patient and EMS Mode of arrival: EMS Limitations: no limitations History of Present Illness HPI Narrative: The patient is a 71 year old female with a past medical history of Type II DM, recurrent UTI, dementia, CVA, ulcerative colitis, depression, presenting for evaluation of coffee-ground emesis. This morning, patient had a large volume episode of emesis that was brown in coloration. Patient is reporting nausea, abdominal pain and distention. Pain is located throughout the abdomen. Denies back pain, chest pain, shortness of breath. Patient denies fever or chills. Denies any nataliya urinary symptoms. The time of assessment, patient does have evidence of coffee-ground emesis on clothing. Patient is not on any anticoagulation. Related Data Home Medications Medication Instructions Recorded Confirmed Breo Ellipta 1 inh INHALATION DAILY 12/13/20 12/13/20 acetaminophen [Tylenol] 650 mg PO BID PRN 12/13/20 12/13/20 atorvastatin 20 mg PO DAILY 12/13/20 12/13/20 baclofen 10 mg PO BID 12/13/20 12/13/20 buspirone 10 mg PO BID 12/13/20 12/13/20 clonazepam 0.5 mg PO BID 12/13/20 12/13/20 ergocalciferol (vitamin D2) 50,000 unit PO MONTHLY 12/13/20 12/13/20 gabapentin 300 mg PO TID 12/13/20 12/13/20 hydrocodone-acetaminophen 1 tablet PO HS 12/13/20 12/13/20 ipratropium-albuterol 3 ml INHALATION Q4H PRN 12/13/20 12/13/20 loratadine 10 mg PO DAILY PRN 12/13/20 12/13/20 mirtazapine 15 mg PO HS 12/13/20 12/13/20 ondansetron HCl [Zofran] 4 mg PO Q8H PRN 12/13/20 12/13/20 primidone 100 mg PO DAILY 12/13/20 12/13/20 sertraline 50 mg PO DAILY 12/13/20 12/13/20 Allergies Allergy/AdvReac Type Severity Reaction Status Date / Time iodine Allergy Unknown Unknown Verified 12/14/20 11:18 Penicillins Allergy Unknown Unknown Verified 12/14/20 11:18 Sulfa (Sulfonamide Allergy Unknown Unknown Verified 12/14/20 12:28 Antibiotics) sulfur dioxide Allergy Unknown Unknown Verified 12/14/20 12:28 Review of Systems Review of Systems: CONSTITUTIONAL: Denies fever EYES: Denies visual changes ENT: Denies rhinorrhea, congestion CARDIOVASCULAR: Denies chest pain, palpitations, or edema. RESPIRATORY: Denies cough or dyspnea. GASTROINTESTINAL: Reports abdominal pain, nausea and vomiting GENITOURINARY: Denies dysuria or hematuria. SKIN: Denies rash or itching. MUSCULOSKELETAL: Denies back pain NEUROLOGIC: Denies headache PSYCHIATRIC: History of depression [facility] Past Medical History Medical History Breast cancer Left breast biopsy from 2017 was ER positive AL positive with no evidence of treatment Chronic respiratory failure with hypoxia, on home O2 therapy 2 L nasal cannula CVA (cerebral vascular accident) Dementia Possibly vascular Folate deficiency anemia 2017 GERD (gastroesophageal reflux disease) Hyperlipidemia Insulin dependent diabetes mellitus Obstructive sleep apnea on CPAP Osteoporosis Severe recurrent major depressive disorder with psychosis Ulcerative colitis Surgical History Surgical History Hx of cholecystectomy Laparoscopic cholecystectomy May 2019 Family History Family History Other Unknown family medical history Social History Social History Social History: Patient is a long-term resident at [facility]. Primary care provider: John oRjas Code status: Full code Healthcare power of business attorney: Elaina Whitfield Smoking status: Never smoker Alcohol intake: never Substance use: never Substance use type: does not use Spiritual care concerns: No Exam Narrative: GENERAL: Awake, alert, conversant, coffee-ground emesis on clothing HEAD: Normocephalic, atraumatic. EYES: PERRLA and EOMI. ENT:
[2021-09-05 10:08] LABS: Basophils Absolute Auto 0.1 K/mm3 (0.0-0.1); Basophils Percent Auto 0.7 % (0.2-1.2); Eosinophils Percent Auto 0.1 % (0-4.4); Hematocrit 49.2 % (37.0-47.0); Hemoglobin 15.7 g/dL (12.0-15.0); Immature Granulocyte Absolute 0.08 K/mm3 (0.00-0.031); Immature Granulocyte Percent A 0.6 % (0-0.5); Lymphocytes Percent Auto 15.6 % (18.3-44.2); Mean Corpuscular HGB Conc 31.9 g/dl (32-36); Mean Corpuscular Hemoglobin 29.1 pg (26-34); Mean Corpuscular Volume 91.3 fl (80-100); Mean Platelet Volume 9.8 fl (7.4-10.4); Monocytes Absolute Auto 0.6 K/mm3 (0.1-0.6); Neutrophils Absolute Auto 11.2 K/mm3 (1.3-6.7); Platelet Count Result 287 k/mm3 (150-375); Red Blood Count 5.39 M/mm3 (4.2-5.4); Red Cell Distribution Width 14.1 % (11.5-14.5); White Blood Count 14.1 K/mm3 (4.5-10.0)
[2021-09-05 10:19] LABS: INR 1.1; Prothrombin Time 13.8 Seconds (11.1-14.7)
[2021-09-05 10:20] LABS: Partial Thromboplastin Time 30.5 SECONDS (22.3-36.8)
[2021-09-05 10:38] LABS: Alanine Aminotransferase 33 U/L (4-35); Albumin Level 4.1 g/dL (3.5-5.1); Alkaline Phosphatase 124 U/L (38-126); Anion Gap 8 mmol/L (8-16); Aspartate Amino Transferase 45 U/L (14-36); Bilirubin,Total 0.8 mg/dL (0.2-1.3); Blood Urea Nitrogen 11 mg/dL (7-17); Carbon Dioxide 29 mmol/L (22-30); Chloride 98 mmol/L (98-107); Estimated CRCL calculation 99 ml/min; Estimated Glomerular Filt Rate > 60; Glucose 385 mg/dL (65-110); Potassium 4.5 mmol/L (3.4-5.0); Sodium 135 mmol/L (137-145)
[2021-09-05] MEDS: PANTOPRAZOLE SODIUM IV 40 MG VIAL 80 MG IV PUSH (11:01)
[2021-09-05] MEDS: SODIUM CHLORIDE 0.9% IV 1,000 ML 80 ML IV CONT (12:55)
--- NOTE | 2021-09-05 13:20 | PC.NURSE ---
This patient, Mehreen Collins, was admitted to [facility] Surg Room 020-11 [id number]. Patient/family oriented to hospital policies and general routines including ID bracelet, bed and alarms, visiting hours, pain management, procedures, bathroom and other care routines, personal items, smoking policy, room service/diet, and visiting hours. Information on how to activate the Rapid Response Team has been discussed. Patient/Family are encouraged to report perceived risks to care and to ask questions if they do not understand what they are told or what they should do.
--- NOTE | 2021-09-05 13:26 | PC.NURSE ---
Pt states on admission flu shoot given at [facility]
--- NOTE | 2021-09-05 15:18 | WPDGICN ---
Assessment and Plan Assessment and plan (1) Ileus: Code(s): K56.7 - Ileus, unspecified Status: Acute Assessment and Plan: Patient with distended abdomen tympanic exam. CT scan and obstructive series consistent with either ileus or more likely partial small bowel obstruction. Bowel sounds are present. Would recommend NG tube decompression and after distention has improved then small bowel series should be performed. GI endoscopy is contraindicated in the face possible obstruction. Because of the coffee-ground emesis patient will be placed on proton pump inhibitor therapy. Likely this on the basis of stress gastritis. Her hemoglobin is stable at present suggesting minimal actual bleeding. (2) Coffee ground emesis: Code(s): K92.0 - Hematemesis Status: Acute Assessment and Plan: Suggestive of stress gastritis. Currently hemoglobin is stable. She has symptoms and signs suggesting possible small-bowel obstruction versus ileus. NG tube decompression advised initially and supportive care for now. 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: with equipment operator intermodal yard use Qualified Code(s): E11.65 - Type 2 diabetes mellitus with hyperglycemia; Z79.4 - terminal operations manager (current) use of insulin Code(s): E11.65 - Type 2 diabetes mellitus with hyperglycemia Status: Chronic (5) Obstructive sleep apnea on CPAP: Code(s): G47.33 - Obstructive sleep apnea (adult) (pediatric); Z99.89 - Dependence on other enabling machines and devices Status: Chronic GI Consult Note Consult date/time: 09/05/21 15:18 HPI: Mehreen Collins is a 71 year old female I am asked to see at the request of the ER because of coffee-ground emesis. Patient currently resident of [facility] because of dementia, stroke, diabetes. Patient is unable to give any intelligible history. Patient apparently had emesis at the [facility] this morning a blackish type material this prompted her to go to the emergency room. In the emergency room her abdomen was noted to be quite distended and tympanic. Abdominal x-ray and CT scan revealed marked distention of the small bowel. Suggesting either ileus or partial small-bowel obstruction. An NG tube was placed and a large amount of gastric coffee-ground like material was obtained. Patient is unable to give any additional history. 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 No evidence that any treatment was rendered. Cerebrovascular accident Chronic respiratory failure with hypoxia, on home O2 therapy 2 L nasal cannula. Dementia Folate deficiency anemia (2017) Gastroesophageal reflux disease Hyperlipidemia Insulin dependent diabetes mellitus Obstructive sleep apnea on CPAP Osteoporosis Severe recurrent major depressive disorder with psychosis Ulcerative colitis Surgical History Surgical History (Updated 09/05/21 @ 14:45 by Carmen Swanson PA-C) History of laparoscopic cholecystectomy (05/13/19) History of left breast biopsy (12/17/16) Family History Family History Other Unknown family medical history Social History Social History (Updated 09/05/21 @ 14:46 by Carmen Swanson PA-C) Social History: Healthcare power of workers compensation attorney: Elaina Whitfield, niece. Code status: Full code. Smoking status: Never smoker Second hand tobacco smoke exposure: No Alcohol intake: never Substance use: ne
[2021-09-05] MEDS: MORPHINE SULFATE (*CRX) 4 MG/ML INJ 2 MG IV PUSH ×3 (15:23→23:03)
[2021-09-05] MEDS: ONDANSETRON INJ 4 MG/2 ML VIAL IV PUSH (15:23)
--- NOTE | 2021-09-05 15:45 | PM.IMHP ---
H&P: HPI History of Present Illness Date/Time: 09/05/21 15:45 Chief Complaint: Vomiting. Narrative: This is a 71-year-old female with history of dementia, stroke, ulcerative colitis, type 2 diabetes mellitus, and depression with psychotic symptoms who presented to the emergency department earlier today via EMS from a local care home for evaluation of vomiting. She is a fair historian however some of the following history is supplemented via a review of her electronic medical records. According to the triage note, the patient had several episodes of emesis this morning and care home staff were worried that she may have a GI bleed due to almost coffee-ground like emesis and she was brought in for evaluation. The patient tells me she was feeling just fine when she went to bed last night but she was sick to her stomach when she got up this morning. She estimates that she vomited approximately 3 to 4 times prior to coming in. On arrival to the emergency department the patient was complaining of generalized abdominal discomfort and distension and she was found to have evidence of an ileus on CT. At the time my evaluation her biggest complaint is that of the NG tube being in place. She still has some mild discomfort in her abdomen but nothing significant. She has not had a bowel movement for 3 days and prior to that she has not noticed dark stools. Review of Systems Review of Systems: Twelve systems were reviewed. No fever, chills, or sweats. No recent cold or flu symptoms. She denies sick contacts. No chest pain or shortness of breath. She denies orthopnea, PND, and lower extremity edema. She states compliance with her CPAP at nighttime. No dysuria. Except as documented, all other systems were reviewed and are negative. 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 Patient denies and reports no treatment was rendered. Cerebrovascular accident Chronic respiratory failure with hypoxia, on home O2 therapy 2 L nasal cannula. Dementia Folate deficiency anemia (2017) Gastroesophageal reflux disease Hyperlipidemia Insulin dependent diabetes mellitus Obstructive sleep apnea on CPAP Osteoporosis Severe recurrent major depressive disorder with psychosis Ulcerative colitis Surgical History Surgical History (Updated 09/05/21 @ 14:45 by Carmen Swanson PA-C) History of laparoscopic cholecystectomy (05/13/19) History of left breast biopsy (12/17/16) Family History Family History Other Unknown family medical history Social History Social History (Updated 09/05/21 @ 14:46 by Carmen Swanson PA-C) Social History: Healthcare power of civil litigation attorney: Elaina Whitfield, niece. Code status: Full code. Smoking status: Never smoker Second hand tobacco smoke exposure: No Alcohol intake: never Substance use: never Substance use type: does not use Additional living arrangements comments: Patient is a long-term resident at [facility]. Additional occupation/education comments: Disabled. Meds Home Medications and Allergies Home Medications Medication Instructions Recorded Confirmed Type Breo Ellipta 1 inh INHALATION DAILY 12/13/20 09/05/21 History acetaminophen [Tylenol] 650 mg PO BID PRN 12/13/20 09/05/21 History atorvastatin 20 mg PO DAILY 12/13/20 09/05/21 History baclofen 10 mg PO BID 12/13/20 09/05/21 History buspirone 10 mg PO BID 12/13/20 09/05/21 History clonazepam 0.5 mg PO BID 12/13/20 09/05/21 History ergocalciferol (vitamin D2) 50,000 unit PO MONTHLY 12/13/20 09/05/21 History gabapentin 300 mg PO TID 12/13/20 09/05/21 History hydrocodone-acetaminophen 1 tablet PO HS 12/13/20 12/13/20 History ipratropium-albuterol 3 ml INHALATION Q4H PRN 12/13/20 12/13/20 History loratadine 10 mg PO DAILY PRN 12/13/20
[2021-09-05 16:37] LABS: Hematocrit 48.3 % (37.0-47.0); Hemoglobin 15.4 g/dL (12.0-15.0)
--- NOTE | 2021-09-05 16:42 | PC.NURSE ---
UA collected and sent to lab this shift
[2021-09-05 16:54] LABS: Glucose Point of Care 392 mg/dl (65-105)
[2021-09-05] MEDS: INSULIN ASPART (*BKC) 100 UNITS/ML SUB-Q (16:59)
[2021-09-05] MEDS: INSULIN GLARGINE (*BKC) 100 UNITS/ML 30 UNITS SUB-Q (16:59)
[2021-09-05 17:32] LABS: Add Urine Microscopic? YES; Appearance Urine Cloudy (Clear); Bacteria Urine 4+ /hpf; Bilirubin Urine Negative (Negative); Color Urine Amber (Yellow); Glucose Urine UA 3+ mg/dL (Negative); Ketones Urine Negative (Negative); Leukocyte Esterase Ur 3+ LEU/UL (Negative); Nitrate Urine Negative (Negative); Protein Urine 1+ mg/dL (Negative); RBC Urine 0-2 /hpf (0-2); Specific Grav Ur 1.016 (1.001-1.035); WBC Urine >75 /hpf
[2021-09-05 17:35] LABS: Blood Urine Negative (Negative)
[2021-09-05 17:48] LABS: Hemoglobin A1C 9.9 % (<5.7)
[2021-09-05 19:00] LABS: Glucose Point of Care 336 mg/dl (65-105)
[2021-09-05] MEDS: FLUTICASONE/SALMETEROL 115-21 MCG INHALER 1 PUFF 2 PUFF INHALATION (20:28)
[2021-09-05 21:08] LABS: Glucose Point of Care 328 mg/dl (65-105)
[2021-09-05] MEDS: INSULIN GLARGINE (*BKC) 100 UNITS/ML 15 UNITS SUB-Q (21:19)
[2021-09-05] MEDS: INSULIN ASPART (*BKC) 100 UNITS/ML 8 UNITS SUB-Q (22:27)
[2021-09-05 23:27] LABS: Glucose Point of Care 348 mg/dl (65-105)
[2021-09-05 23:48] LABS: Hematocrit 46.8 % (37.0-47.0); Hemoglobin 14.7 g/dL (12.0-15.0)
[2021-09-06] MEDS: MORPHINE SULFATE (*CRX) 4 MG/ML INJ 2 MG IV PUSH ×2 (04:24→08:14)
[2021-09-06 06:00] VITALS: BP 126/47; PULSE 87; RESP 18; TEMP 36.1; O2SAT 98
[2021-09-06 06:09] LABS: Hemoglobin 13.5 g/dL (12.0-15.0); Mean Corpuscular HGB Conc 31.4 g/dl (32-36); Mean Corpuscular Hemoglobin 29.3 pg (26-34); Mean Corpuscular Volume 93.5 fl (80-100); Mean Platelet Volume 10.8 fl (7.4-10.4); Platelet Count Result 182 k/mm3 (150-375); Red Cell Distribution Width 14.4 % (11.5-14.5); White Blood Count 14.6 K/mm3 (4.5-10.0)
[2021-09-06 06:19] LABS: Alanine Aminotransferase 26 U/L (4-35); Albumin Level 3.4 g/dL (3.5-5.1); Alkaline Phosphatase 87 U/L (38-126); Anion Gap 11 mmol/L (8-16); Aspartate Amino Transferase 30 U/L (14-36); Bilirubin,Total 0.6 mg/dL (0.2-1.3); Blood Urea Nitrogen 20 mg/dL (7-17); Calcium 8.8 mg/dL (8.4-10.2); Carbon Dioxide 25 mmol/L (22-30); Chloride 101 mmol/L (98-107); Estimated CRCL calculation 69 ml/min; Estimated Glomerular Filt Rate > 60; Glucose 304 mg/dL (65-110); Magnesium 1.7 mg/dL (1.6-2.3); Sodium 137 mmol/L (137-145)
[2021-09-06 06:56] LABS: Glucose Point of Care 288 mg/dl (65-105)
[2021-09-06] MEDS: SODIUM CHLORIDE 0.9% IV 1,000 ML 80 ML IV CONT ×2 (07:39→23:07)
--- NOTE | 2021-09-06 07:58 | WPDGIPROGNO ---
Progress Note: A&P Assessment and Plan (1) Ileus: Code(s): K56.7 - Ileus, unspecified Status: Acute Assessment and Plan: Patient with ileus although partial small-bowel obstruction cannot be excluded. Abdomen less distended today. NG tube decompression has continued. Would advise small-bowel follow-through with Gastrografin will be arranged today if possible. (2) Coffee ground emesis: Code(s): K92.0 - Hematemesis Status: Acute Assessment and Plan: Coffee-ground emesis noted at presentation. NG tube return was coffee-ground yesterday's term bilious today. Likely on the basis of stress gastritis. Endoscopy not indicated while there is a question of ileus and/or obstruction. Will continue PPI therapy for now. (3) Dementia: Code(s): F03.90 - Unspecified dementia without behavioral disturbance Status: Acute Assessment and Plan: Patient with dementia. Unable to give any history. Currently resident of a halfway. (4) Type 2 diabetes mellitus with hyperglycemia: Qualifiers: Diabetes mellitus long-term insulin use: with long-term use Qualified Code(s): E11.65 - Type 2 diabetes mellitus with hyperglycemia; Z79.4 - intermediate manager (current) use of insulin Code(s): E11.65 - Type 2 diabetes mellitus with hyperglycemia Status: Chronic Subjective Date/time seen: 09/06/21 07:58 Patient alert. Remains bed ridden unable to give any useful history because of dementia. NG tube in place with bilious return at present. Review of Systems Review of Systems: ROS unobtainable: Yes unobtainable due to mental status Exam Narrative: Physical exam reveals patient be in bed. NG tube with bilious return at this time. No longer with coffee-ground return. Lungs are clear. Abdomen is still distended but softer and less tympanic. Bowel sounds are present more active today. Objective Data Vital Signs Vital Signs: Vital Signs - 24 hr 09/05/21 09:13 09/05/21 09:14 09/05/21 09:15 Temperature Pulse Rate 96 99 97 Respiratory Rate 21 H 27 H 23 H Blood Pressure 147/90 H Pulse Oximetry 97 97 97 09/05/21 09:16 09/05/21 09:17 09/05/21 09:30 Temperature 97.6 F Pulse Rate 97 100 96 Respiratory Rate 16 27 H 19 Blood Pressure 147/90 H 150/77 H Pulse Oximetry 100 98 99 09/05/21 09:45 09/05/21 10:00 09/05/21 10:15 Temperature Pulse Rate 100 101 H 102 H Respiratory Rate 29 H 20 25 H Blood Pressure Pulse Oximetry 99 97 93 09/05/21 10:30 09/05/21 10:52 09/05/21 10:56 Temperature Pulse Rate 103 H 102 H Respiratory Rate 23 H 25 H Blood Pressure 123/71 Pulse Oximetry 93 92 92 09/05/21 11:00 09/05/21 11:01 09/05/21 11:02 Temperature Pulse Rate 100 95 100 Respiratory Rate 31 H 26 H 24 H Blood Pressure 126/109 H Pulse Oximetry 98 98 98 09/05/21 11:15 09/05/21 11:16 09/05/21 11:30 Temperature Pulse Rate 99 100 100 Respiratory Rate 21 H 20 32 H Blood Pressure Pulse Oximetry 98 98 97 09/05/21 11:31 09/05/21 11:32 09/05/21 11:45 Temperature Pulse Rate 101 H 98 112 H Respiratory Rate 26 H 29 H 24 H Blood Pressure 132/71 Pulse Oximetry 97 98 97 09/05/21 11:46 09/05/21 11:47 09/05/21 12:00 Temperature Pulse Rate 108 H 100 97 Respiratory Rate 23 H 24 H 31 H Blood Pressure 151/72 H Pulse Oximetry 97 97 98 09/05/21 12:01 09/05/21 12:15 09/05/21 12:16 Temperature Pulse Rate 99 100 100 Respiratory Rate 24 H 29 H 21 H Blood Pressure 162/88 H 137/71 Pulse Oximetry 98 97 97 09/05/21 13:14 09/05/21 14:00 09/05/21 20:00 Temperature 97.1 F L Pulse Rate 100 96 Respiratory Rate 21 H 22 H Blood Pressure 128/62 Pulse Oximetry 97 97 95 09/05/21 20:30 09/05/21 22:00 09/06/21 06:00 Temperature 97.7 F 96.9 F L Pulse Rate 82 100 87 Respiratory Rate 20 18 Blood Pressure 129/56 L 126/47 L Pulse Oximetry 95 98 Intake/Output Intake/Output: Intake & Output 08/06
[2021-09-06 08:10] VITALS: O2SAT 97
--- NOTE | 2021-09-06 09:53 | PM.IMPN ---
Progress Note: A&P Assessment and Plan (1) Hematemesis: Code(s): K92.0 - Hematemesis Status: Acute (2) Ileus: Code(s): K56.7 - Ileus, unspecified Status: Acute (3) Gastritis: Code(s): K29.70 - Gastritis, unspecified, without bleeding Status: Acute (4) Gastroesophageal reflux disease: Code(s): K21.9 - Gastro-esophageal reflux disease without esophagitis Status: Acute (5) Type 2 diabetes mellitus with hyperglycemia: Qualifiers: Diabetes mellitus [facility] insulin use: with [facility] use Qualified Code(s): E11.65 - Type 2 diabetes mellitus with hyperglycemia; Z79.4 - superintendent container terminal (current) use of insulin Code(s): E11.65 - Type 2 diabetes mellitus with hyperglycemia Status: Chronic Additional Plan 09/05/21 The patient presented to the emergency department today with abdominal discomfort, nausea, and vomiting. CT shows evidence of partial small-bowel obstruction versus ileus. NG tube has been inserted for decompression and she will of course be NPO for now. Given reports of possible coffee-ground emesis she has been started on a Protonix drip. Hemoglobin and hematocrit will be trended. Will resume basal insulin at a lower dose as her random glucose today was 385. Initiate sliding scale insulin, Accu-Cheks, and hypoglycemic protocol. Check hemoglobin A1c. The rest of her home medications will be reviewed and transitioned to IV form if appropriate. CT scan and obstructive series consistent with either ileus or more likely partial small bowel obstruction. Bowel sounds are present. Would recommend NG tube decompression and after distention has improved then small bowel series should be performed. GI endoscopy is contraindicated in the face possible obstruction. Because of the coffee-ground emesis patient will be placed on proton pump inhibitor therapy. Likely this on the basis of stress gastritis. Her hemoglobin is stable at present suggesting minimal actual bleeding. 09/06/21 Small bowel series reviewed Ileus vs pSBO cont NGT Pantoprazole Morphine p.r.n. Zofran p.r.n. Insulin sliding scale while NPO may need abx will monitor VS and CBC remains hyperglycemic on NS anticipate change to D5NS tomorrow GI recs appreciated Subjective Date/time seen: 09/06/21 09:53 pt complains of abd pain (diffuse) Exam Narrative: General: NGT in place obese HEENT: Extraocular motions intact. Sclerae anicteric. Conjunctiva mildly injected. NG tube in the right naris. Neck: Supple. Exam difficult due to neck circumference. No JVD or adenopathy. Respiratory: Respirations are even and nonlabored. Lungs are clear to auscultation bilaterally. Cardiovascular: Regular rate and rhythm with S1-S2. Gastrointestinal: Abdomen is soft and somewhat distended with diffuse tympany and tenderness. Bowel sounds are hypoactive. Skin: Warm and dry. No rash or lesions on limited exam. Extremities: No cyanosis, clubbing, or edema. Radial and pedal pulses intact. Neurological: Alert. Cranial nerves 2-12 are grossly intact. Speech is clear but slow and high-pitched. Generalized weakness, worse in the lower legs. Psychiatric: Pleasant and cooperative. Appropriate mood. Objective Data Vital Signs Vital Signs: Vital Signs - 24 hr 09/05/21 10:00 09/05/21 10:15 09/05/21 10:30 Temperature Pulse Rate 101 H 102 H 103 H Respiratory Rate 20 25 H 23 H Blood Pressure Pulse Oximetry 97 93 93 09/05/21 10:52 09/05/21 10:56 09/05/21 11:00 Temperature Pulse Rate 102 H 100 Respiratory Rate 25 H 31 H Blood Pressure 123/71 Pulse Oximetry 92 92 98 09/05/21 11:01 09/05/21 11:02 09/05/21 11:15 Temperature Pulse Rate 95 100 99 Respiratory Rate 26 H 24 H 21 H Blood Pressure 126/109 H Pulse Oximetry 98 98 98 09/05/21 11:16 09/05/21 11:30 09/05/21 11:31 Temperature Pulse Rate 100 100 101 H Respiratory Rate 20 32 H 26 H Blood Pressure 132/71 Pulse Oximetr
[2021-09-06 10:20] VITALS: O2SAT 95
[2021-09-06] MEDS: FLUTICASONE/SALMETEROL 115-21 MCG INHALER 1 PUFF 2 PUFF INHALATION (10:21)
[2021-09-06] MEDS: MORPHINE SULFATE (*CRX) 4 MG/ML INJ 3 MG IV PUSH ×4 (10:35→23:07)
[2021-09-06] MEDS: ONDANSETRON INJ 4 MG/2 ML VIAL IV PUSH (10:35)
[2021-09-06 12:05] LABS: Glucose Point of Care 266 mg/dl (65-105)
[2021-09-06] MEDS: INSULIN ASPART (*BKC) 100 UNITS/ML SUB-Q (12:05)
--- NOTE | 2021-09-06 13:20 | PC.NURSE ---
On 09/06/21, the student, Alexia Brown, provided care and completed [facility] documentation on this patient. I have reviewed the student's documentation and agree with the findings.
[2021-09-06 14:00] VITALS: BP 106/44; PULSE 83; RESP 18; TEMP 36.2; O2SAT 96
[2021-09-06 15:27] LABS: Gastric Negative Control Negative; Gastric Positive Control Positive; Occult Blood Gastric Fluid Positive
[2021-09-06 17:25] LABS: Glucose Point of Care 185 mg/dl (65-105)
[2021-09-06 20:00] VITALS: O2SAT 99
--- NOTE | 2021-09-06 21:01 | PCRCNOTE ---
pt was agitated and did not want to do her MDI with therapist
[2021-09-06] MEDS: PANTOPRAZOLE SODIUM IV 40 MG VIAL IV PUSH (21:17)
[2021-09-06 22:00] VITALS: BP 127/47; PULSE 89; RESP 18; TEMP 36.7; O2SAT 99
[2021-09-07] VITALS (7 sets, daily range): BP systolic 122–150; BP diastolic 54–61; PULSE 74–83; RESP 20; TEMP 36.2–36.5; O2SAT 91–98
[2021-09-07] MEDS: INSULIN ASPART (*BKC) 100 UNITS/ML SUB-Q ×2 (00:10→17:03)
[2021-09-07 00:12] LABS: Glucose Point of Care 239 mg/dl (65-105)
[2021-09-07] MEDS: MORPHINE SULFATE (*CRX) 4 MG/ML INJ 3 MG IV PUSH ×3 (03:42→14:47)
[2021-09-07 05:51] LABS: Glucose Point of Care 194 mg/dl (65-105)
[2021-09-07] MEDS: PANTOPRAZOLE SODIUM IV 40 MG VIAL IV PUSH ×2 (08:13→22:12)
--- NOTE | 2021-09-07 08:57 | PM.IMPN ---
Progress Note: A&P Assessment and Plan (1) Hematemesis: Code(s): K92.0 - Hematemesis Status: Acute (2) Ileus: Code(s): K56.7 - Ileus, unspecified Status: Acute (3) Gastritis: Code(s): K29.70 - Gastritis, unspecified, without bleeding Status: Acute (4) Gastroesophageal reflux disease: Code(s): K21.9 - Gastro-esophageal reflux disease without esophagitis Status: Acute (5) Type 2 diabetes mellitus with hyperglycemia: Qualifiers: Diabetes mellitus [facility] insulin use: with [facility] use Qualified Code(s): E11.65 - Type 2 diabetes mellitus with hyperglycemia; Z79.4 - terminal operator (current) use of insulin Code(s): E11.65 - Type 2 diabetes mellitus with hyperglycemia Status: Chronic (6) Urinary tract infection due to extended-spectrum beta lactamase (ESBL) producing Escherichia coli: Code(s): N39.0 - Urinary tract infection, site not specified; B96.29 - Other Escherichia coli [E. coli] as the cause of diseases classified elsewhere; Z16.12 - Extended spectrum beta lactamase (ESBL) resistance Status: Acute (7) Coffee ground emesis: Code(s): K92.0 - Hematemesis Status: Acute (8) Obstructive sleep apnea on CPAP: Code(s): G47.33 - Obstructive sleep apnea (adult) (pediatric); Z99.89 - Dependence on other enabling machines and devices Status: Chronic (9) Dementia: Code(s): F03.90 - Unspecified dementia without behavioral disturbance Status: Acute Additional Plan 09/05/21 The patient presented to the emergency department today with abdominal discomfort, nausea, and vomiting. CT shows evidence of partial small-bowel obstruction versus ileus. NG tube has been inserted for decompression and she will of course be NPO for now. Given reports of possible coffee-ground emesis she has been started on a Protonix drip. Hemoglobin and hematocrit will be trended. Will resume basal insulin at a lower dose as her random glucose today was 385. Initiate sliding scale insulin, Accu-Cheks, and hypoglycemic protocol. Check hemoglobin A1c. The rest of her home medications will be reviewed and transitioned to IV form if appropriate. CT scan and obstructive series consistent with either ileus or more likely partial small bowel obstruction. Bowel sounds are present. Would recommend NG tube decompression and after distention has improved then small bowel series should be performed. GI endoscopy is contraindicated in the face possible obstruction. Because of the coffee-ground emesis patient will be placed on proton pump inhibitor therapy. Likely this on the basis of stress gastritis. Her hemoglobin is stable at present suggesting minimal actual bleeding. 09/06/21 Small bowel series reviewed Ileus vs pSBO cont NGT Pantoprazole Morphine p.r.n. Zofran p.r.n. Insulin sliding scale while NPO may need abx will monitor VS and CBC remains hyperglycemic on NS anticipate change to D5NS tomorrow GI recs appreciated 09/07/21 cough w eating -> ST eval ESBL Ecoli start Carbapenem dc NGT today trial of clears BG still elevated low dose lantus ordered pt reporting epigastric pain ->carafate / PPI cont current care GI recs appreciated Subjective Date/time seen: 09/07/21 08:57 pt reporting epigastric pain Exam Narrative: General: NGT in place obese HEENT: Extraocular motions intact. Sclerae anicteric. Conjunctiva mildly injected. NG tube in the right naris. Neck: Supple. Exam difficult due to neck circumference. No JVD or adenopathy. Respiratory: Respirations are even and nonlabored. Lungs are clear to auscultation bilaterally. Cardiovascular: Regular rate and rhythm with S1-S2. Gastrointestinal: Abdomen is soft nondistended with diffuse tympany and tenderness in epigastrium Bowel sounds are hypoactive. Skin: Warm and dry. No rash or lesions on limited exam. Extremities: No cyanosis, clubbing, or edema. Radial and pedal pulse
[2021-09-07 09:21] LABS: Basophils Absolute Auto 0.1 K/mm3 (0.0-0.1); Basophils Percent Auto 0.6 % (0.2-1.2); Eosinophils Absolute Auto 0.1 K/mm3 (0-0.3); Eosinophils Percent Auto 0.8 % (0-4.4); Hematocrit 37.5 % (37.0-47.0); Hemoglobin 11.6 g/dL (12.0-15.0); Immature Granulocyte Absolute 0.05 K/mm3 (0.00-0.031); Immature Granulocyte Percent A 0.5 % (0-0.5); Lymphocytes Percent Auto 20.7 % (18.3-44.2); Mean Corpuscular HGB Conc 30.9 g/dl (32-36); Mean Corpuscular Hemoglobin 29.5 pg (26-34); Mean Corpuscular Volume 95.4 fl (80-100); Mean Platelet Volume 9.9 fl (7.4-10.4); Monocytes Absolute Auto 0.6 K/mm3 (0.1-0.6); Monocytes Percent Auto 5.2 % (2.6-8.5); Neutrophils Absolute Auto 7.7 K/mm3 (1.3-6.7); Neutrophils Percent Auto 72.2 % (45.5-73.1); Platelet Count Result 173 k/mm3 (150-375); Red Blood Count 3.93 M/mm3 (4.2-5.4); Red Cell Distribution Width 14.6 % (11.5-14.5); White Blood Count 10.6 K/mm3 (4.5-10.0)
--- NOTE | 2021-09-07 09:48 | WPDGIPROGNO ---
Progress Note: A&P Assessment and Plan (1) Ileus: Code(s): K56.7 - Ileus, unspecified Status: Acute Assessment and Plan: Patient's ileus appears to have resolved. She has now passed bowel movement. Abdomen is much softer and flat. Small-bowel series reveals no obvious obstruction. Plan to discontinue NG tube. Start with liquid diet advance as tolerated. (2) Coffee ground emesis: Code(s): K92.0 - Hematemesis Status: Acute Assessment and Plan: Patient with resolved coffee-ground emesis. Hemoglobin has remained essentially stable. Likely on the basis of stress gastritis. Would recommend continuing patient on PPI therapy. Because of her comorbid diseases would defer endoscopy at this time. 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 Able to converse. Had a good large bowel movement last evening. No blood in her stools. She is hungry and anxious to get NG tube out. Review of Systems Review of Systems: All systems reviewed & are unremarkable except as noted in HPI and below Exam Narrative: Physical exam reveals patient be bed ridden. HEENT exam reveals NG tube in place with bilious yellow material in tube. She is anicteric. Lungs are clear. Heart without murmur. Abdomen is soft and flat this morning. Bowel sounds are normal. No localized tenderness. No lesions. No masses. Objective Data Vital Signs Vital Signs: Vital Signs - 24 hr 09/06/21 10:20 09/06/21 14:00 09/06/21 20:00 Temperature 97.1 F L Pulse Rate 83 Respiratory Rate 18 Blood Pressure 106/44 L Pulse Oximetry 95 96 99 09/06/21 22:00 09/07/21 05:41 09/07/21 08:17 Temperature 98.1 F 97.6 F Pulse Rate 89 82 76 Respiratory Rate 18 20 20 Blood Pressure 127/47 L 122/54 L Pulse Oximetry 99 96 94 Intake/Output Intake/Output: Intake & Output 09/04/21 09/05/21 09/06/21 09/07/21 23:59 23:59 23:59 23:59 Intake Total 2600 100 Output Total 200 275 Balance -200 2325 100 Meds/Results Medications: Active Medications Generic Name Dose Route Start Last Admin Trade Name Freq PRN Reason Stop Dose Admin Dextrose 12.5 gm 09/05/21 14:52 Dextrose 50% 25 Gm/50 Ml Syringe IV PUSH PRN PRN Hypoglycemia Protocol Glucagon 1 mg 09/05/21 14:52 Glucagon For Inj 1 Mg Vial IM PRN PRN Hypoglycemia Protocol Glucose 15 gm 09/05/21 14:52 Glucose Oral Gel 15 Gm Of Glucse In 37.5 Gm Tube PO PRN PRN Hypoglycemia Protocol Sodium Chloride 1,000 mls @ 80 mls/hr 09/05/21 11:35 09/06/21 23:07 Normal Saline Iv IV CONT 80 mls/hr .[id number] YONG Administration Dextrose 1,000 mls @ 100 mls/hr 09/05/21 14:52 Dextrose 5% 1,000 Ml IVPB PRN PRN Hypoglycemia Protocol Acetaminophen 1,000 mg in 100 mls @ 400 mls/hr 09/06/21 10:00 09/07/21 07:17 Ofirmev 1,000 Mg Ivpb IVPB 09/07/21 09:59 Infused Q6H PRN Infusion Pain Rated 4-6 Insulin Aspart 3 - 6 units 09/07/21 00:00 09/07/21 05:41 Insulin Aspart (*Bkc) 100 Units/Ml SUB-Q Not Given Q6H YONG Protocol Lorazepam 0.5 mg 09/06/21 17:52 Lorazepam Inj (*Crx) 2 Mg/Ml Vial IV PUSH Q12H PRN Anxiety Morphine Sulfate 3 mg 09/06/21 09:51 09/07/21 08:11 Morphine Sulfate (*Crx) 4 Mg/Ml Inj IV PUSH 3 mg Q3H PRN Administration Pain Rated 7-10 Ondansetron HCl 4 mg 09/05/21 11:31 09/06/21 10:35 Ondansetron Inj 4 Mg/2 Ml Vial IV PUSH 4 mg Q
[2021-09-07 09:54] LABS: Anion Gap 4 mmol/L (8-16); Blood Urea Nitrogen 13 mg/dL (7-17); Calcium 8.4 mg/dL (8.4-10.2); Carbon Dioxide 30 mmol/L (22-30); Chloride 107 mmol/L (98-107); Estimated CRCL calculation 113 ml/min; Estimated Glomerular Filt Rate > 60; Glucose 196 mg/dL (65-110); Magnesium 1.9 mg/dL (1.6-2.3); Potassium 3.5 mmol/L (3.4-5.0); Sodium 141 mmol/L (137-145)
[2021-09-07 11:37] LABS: IFOB Positive Control Positive; Immunochemical Fecal Occult Bl Negative (N)
[2021-09-07] MEDS: SODIUM CHLORIDE 0.9% IV 1,000 ML 80 ML IV CONT (11:53)
[2021-09-07 12:00] LABS: Glucose Point of Care 169 mg/dl (65-105)
--- NOTE | 2021-09-07 12:40 | WPDCDIQUERY2 ---
CDI Query Clarification Request -09/05 urine culture growing >100,000 E coli Please clarify if there is any clinical significance to above finding. <Patricia Euceda RN - Last Filed: 09/07/21 12:43> unknown <Charlene Gilbert MD - Last Filed: 09/08/21 09:16>
[2021-09-07 16:46] LABS: Glucose Point of Care 203 mg/dl (65-105)
[2021-09-07] MEDS: oxyCODONE/ACETAMINOPHEN (*CRX) 5-325 MG TABLET 1 TABLET PO (18:26)
[2021-09-07] MEDS: FLUTICASONE/SALMETEROL 115-21 MCG INHALER 1 PUFF 2 PUFF INHALATION (19:39)
[2021-09-07] MEDS: LORazepam INJ (*CRX) 2 MG/ML VIAL 0.5 MG IV PUSH (22:11)
[2021-09-07] MEDS: SUCRALFATE SUSP 100 MG/ML 10 ML UDC 1000 MG PO (22:12)
[2021-09-07] MEDS: INSULIN GLARGINE (*BKC) 100 UNITS/ML SUB-Q (22:13)
[2021-09-08] MEDS: SODIUM CHLORIDE 0.9% IV 1,000 ML 80 ML IV CONT ×2 (00:48→15:18)
[2021-09-08] MEDS: oxyCODONE/ACETAMINOPHEN (*CRX) 5-325 MG TABLET 1 TABLET PO ×4 (00:49→20:51)
[2021-09-08 00:56] LABS: Glucose Point of Care 182 mg/dl (65-105)
[2021-09-08] MEDS: MORPHINE SULFATE (*CRX) 4 MG/ML INJ 3 MG IV PUSH ×3 (04:51→23:42)
[2021-09-08 05:51] VITALS: BP 134/36; PULSE 72; RESP 18; TEMP 36.4; O2SAT 90
[2021-09-08] MEDS: SUCRALFATE SUSP 100 MG/ML 10 ML UDC 1000 MG PO ×4 (05:58→20:48)
[2021-09-08 06:03] LABS: Glucose Point of Care 183 mg/dl (65-105)
[2021-09-08] MEDS: FLUTICASONE/SALMETEROL 115-21 MCG INHALER 1 PUFF 2 PUFF INHALATION ×2 (08:13→20:47)
--- NOTE | 2021-09-08 09:16 | PM.IMPN ---
Progress Note: A&P Assessment and Plan (1) Hematemesis: Code(s): K92.0 - Hematemesis Status: Acute (2) Ileus: Code(s): K56.7 - Ileus, unspecified Status: Acute (3) Gastritis: Code(s): K29.70 - Gastritis, unspecified, without bleeding Status: Acute (4) Gastroesophageal reflux disease: Code(s): K21.9 - Gastro-esophageal reflux disease without esophagitis Status: Acute (5) Type 2 diabetes mellitus with hyperglycemia: Qualifiers: Diabetes mellitus half-way insulin use: with half-way use Qualified Code(s): E11.65 - Type 2 diabetes mellitus with hyperglycemia; Z79.4 - director long term care (current) use of insulin Code(s): E11.65 - Type 2 diabetes mellitus with hyperglycemia Status: Chronic (6) Urinary tract infection due to extended-spectrum beta lactamase (ESBL) producing Escherichia coli: Code(s): N39.0 - Urinary tract infection, site not specified; B96.29 - Other Escherichia coli [E. coli] as the cause of diseases classified elsewhere; Z16.12 - Extended spectrum beta lactamase (ESBL) resistance Status: Acute (7) Coffee ground emesis: Code(s): K92.0 - Hematemesis Status: Acute (8) Obstructive sleep apnea on CPAP: Code(s): G47.33 - Obstructive sleep apnea (adult) (pediatric); Z99.89 - Dependence on other enabling machines and devices Status: Chronic (9) Dementia: Code(s): F03.90 - Unspecified dementia without behavioral disturbance Status: Acute Additional Plan 09/05/21 The patient presented to the emergency department today with abdominal discomfort, nausea, and vomiting. CT shows evidence of partial small-bowel obstruction versus ileus. NG tube has been inserted for decompression and she will of course be NPO for now. Given reports of possible coffee-ground emesis she has been started on a Protonix drip. Hemoglobin and hematocrit will be trended. Will resume basal insulin at a lower dose as her random glucose today was 385. Initiate sliding scale insulin, Accu-Cheks, and hypoglycemic protocol. Check hemoglobin A1c. The rest of her home medications will be reviewed and transitioned to IV form if appropriate. CT scan and obstructive series consistent with either ileus or more likely partial small bowel obstruction. Bowel sounds are present. Would recommend NG tube decompression and after distention has improved then small bowel series should be performed. GI endoscopy is contraindicated in the face possible obstruction. Because of the coffee-ground emesis patient will be placed on proton pump inhibitor therapy. Likely this on the basis of stress gastritis. Her hemoglobin is stable at present suggesting minimal actual bleeding. 09/06/21 Small bowel series reviewed Ileus vs pSBO cont NGT Pantoprazole Morphine p.r.n. Zofran p.r.n. Insulin sliding scale while NPO may need abx will monitor VS and CBC remains hyperglycemic on NS anticipate change to D5NS tomorrow GI recs appreciated 09/07/21 cough w eating -> ST eval ESBL Ecoli start Carbapenem dc NGT today trial of clears BG still elevated low dose lantus ordered pt reporting epigastric pain ->carafate / PPI cont current care GI recs appreciated 09/08/21 advance diet cont tx for UTI KUB for ongoing pain Start tramadol Continue bowel regimen GI recs appreciated anticipate return to NH on saturday BG not at goal lantus 10U q am Subjective Date/time seen: 09/08/21 09:16 Complains of ongoing abdominal pain. This has been reviewed with RN. History does seem reliable. Exam Narrative: General: On O2 via nasal cannula obese HEENT: Extraocular motions intact. Sclerae anicteric. Conjunctiva mildly injected. Neck: Supple. Exam difficult due to neck circumference. No JVD or adenopathy. Respiratory: Respirations are even and nonlabored. Lungs are clear to auscultation bilaterally. Cardiovascular: Regular rate and rhythm with S1-S2. Gastroi
--- NOTE | 2021-09-08 09:28 | WPDGIPROGNO ---
Progress Note: A&P Assessment and Plan (1) Coffee ground emesis: Code(s): K92.0 - Hematemesis Status: Acute Assessment and Plan: Coffee-ground emesis resolved. Likely from stress gastritis. No plans for investigation. Maintain patient on PPI. Avoid NSAIDs. (2) Urinary tract infection due to extended-spectrum beta lactamase (ESBL) producing Escherichia coli: Code(s): N39.0 - Urinary tract infection, site not specified; B96.29 - Other Escherichia coli [E. coli] as the cause of diseases classified elsewhere; Z16.12 - Extended spectrum beta lactamase (ESBL) resistance Status: Acute Assessment and Plan: UTI identified. Likely contributes to some of the other symptoms she has had. Antibiotics per primary care service. (3) Dementia: Code(s): F03.90 - Unspecified dementia without behavioral disturbance Status: Acute (4) Ileus: Code(s): K56.7 - Ileus, unspecified Status: Acute Assessment and Plan: Ileus appears resolved. Continuing patient on laxatives may be of some benefit as she is not very mobile. Subjective Date/time seen: 09/08/21 09:28 Patient alert more comfortable today with NG tube out. Past good bowel movement yesterday. Has had less since that time. No additional vomiting. Tolerating diet so far. Review of Systems Review of Systems: All systems reviewed & are unremarkable except as noted in HPI and below Exam Narrative: Physical exam reveals patient to be alert. Significant dysarthria noted. Lungs are clear. Heart without murmur. Abdomen bowel sounds present soft mild distention evident. No tympany. Objective Data Vital Signs Vital Signs: Vital Signs - 24 hr 09/07/21 14:00 09/07/21 19:38 09/07/21 20:00 Temperature 97.7 F Pulse Rate 81 74 Respiratory Rate 20 Blood Pressure 150/59 H Pulse Oximetry 93 94 98 09/07/21 22:00 09/08/21 05:51 Temperature 97.1 F L 97.5 F L Pulse Rate 83 72 Respiratory Rate 20 18 Blood Pressure 127/61 134/36 L Pulse Oximetry 91 90 Intake/Output Intake/Output: Intake & Output 09/05/21 09/06/21 09/07/21 09/08/21 23:59 23:59 23:59 23:59 Intake Total 2600 2680 1250 Output Total 200 275 Balance -200 2325 2680 1250 Meds/Results Medications: Active Medications Generic Name Dose Route Start Last Admin Trade Name Freq PRN Reason Stop Dose Admin Dextrose 12.5 gm 09/05/21 14:52 Dextrose 50% 25 Gm/50 Ml Syringe IV PUSH PRN PRN Hypoglycemia Protocol Glucagon 1 mg 09/05/21 14:52 Glucagon For Inj 1 Mg Vial IM PRN PRN Hypoglycemia Protocol Glucose 15 gm 09/05/21 14:52 Glucose Oral Gel 15 Gm Of Glucse In 37.5 Gm Tube PO PRN PRN Hypoglycemia Protocol Sodium Chloride 1,000 mls @ 80 mls/hr 09/05/21 11:35 09/08/21 00:48 Normal Saline Iv IV CONT 80 mls/hr .[id number] YONG Administration Dextrose 1,000 mls @ 100 mls/hr 09/05/21 14:52 Dextrose 5% 1,000 Ml IVPB PRN PRN Hypoglycemia Protocol Imipenem/Cilastatin Sodium 500 mg in 100 mls @ 300 mls/hr 09/07/21 18:00 09/08/21 06:40 Primaxin 500 Mg/D5w 100 Ml IVPB Infused Q6HR YONG Infusion Insulin Aspart 3 - 6 units 09/07/21 00:00 09/08/21 05:58 Insulin Aspart (*Bkc) 100 Units/Ml SUB-Q Not Given Q6H [facility] Protocol Insulin Glargine 5 units 09/08/21 10:00 Insulin Glargine (*Bkc) 100 Units/Ml SUB-Q 1000 YONG Lorazepam 0.5 mg 09/06/21 17:52 09/07/21 22:11 Lorazepam Inj (*Crx) 2 Mg/Ml Vial IV PUSH 0.5 mg Q12H PRN Administration Anxiety Morphine Sulfate 3 mg 09/06/21 09:51 09/08/21 04:51 Morphine Sulfate (*Crx) 4 Mg/Ml Inj IV PUSH 3 mg Q3H PRN Administration Pain Rated 7-10 Ondansetron HCl 4 mg 09/05/21 11:31 09/06/21 10:35 Ondansetron Inj 4 Mg/2 Ml Vial IV PUSH 4 mg Q4H PRN Administration Nausea Oxycodone/Acetaminophen 1 tablet 09/07/21 17:29 09/08/21 06:55 Ox
[2021-09-08 09:30] VITALS: O2SAT 92
[2021-09-08] MEDS: PANTOPRAZOLE SODIUM IV 40 MG VIAL IV PUSH ×2 (09:31→20:48)
[2021-09-08] MEDS: INSULIN GLARGINE (*BKC) 100 UNITS/ML SUB-Q (09:34)
[2021-09-08] MEDS: INSULIN ASPART (*BKC) 100 UNITS/ML SUB-Q (12:02)
[2021-09-08 12:09] LABS: Glucose Point of Care 216 mg/dl (65-105)
[2021-09-08 14:00] VITALS: BP 165/57; PULSE 78; RESP 24; TEMP 35.7; O2SAT 92
[2021-09-08 16:19] LABS: Glucose Point of Care 200 mg/dl (65-105)
[2021-09-08 19:29] LABS: Lactic Acid Reflex 1.2 mmol/L (0.7-2.1)
[2021-09-08 20:49] VITALS: PULSE 72; RESP 20; O2SAT 93
[2021-09-08 21:28] VITALS: BP 139/50; PULSE 76; RESP 18; TEMP 36.5; O2SAT 91
[2021-09-08 22:10] LABS: Glucose Point of Care 163 mg/dl (65-105)
[2021-09-09] MEDS: oxyCODONE/ACETAMINOPHEN (*CRX) 5-325 MG TABLET 1 TABLET PO ×2 (02:50→09:57)
[2021-09-09] MEDS: SODIUM CHLORIDE 0.9% IV 1,000 ML 80 ML IV CONT ×2 (05:11→19:07)
[2021-09-09] MEDS: MORPHINE SULFATE (*CRX) 4 MG/ML INJ 3 MG IV PUSH ×4 (05:12→20:55)
[2021-09-09] MEDS: SUCRALFATE SUSP 100 MG/ML 10 ML UDC 1000 MG PO ×4 (05:52→20:56)
[2021-09-09 05:58] VITALS: BP 169/48; PULSE 78; RESP 18; TEMP 36.1; O2SAT 96
[2021-09-09 07:36] LABS: Basophils Absolute Auto 0.1 K/mm3 (0.0-0.1); Basophils Percent Auto 0.7 % (0.2-1.2); Eosinophils Absolute Auto 0.2 K/mm3 (0-0.3); Eosinophils Percent Auto 2.4 % (0-4.4); Hematocrit 40.8 % (37.0-47.0); Hemoglobin 12.9 g/dL (12.0-15.0); Immature Granulocyte Absolute 0.04 K/mm3 (0.00-0.031); Immature Granulocyte Percent A 0.6 % (0-0.5); Lymphocytes Absolute Auto 1.87 K/mm3 (0.9-3.2); Lymphocytes Percent Auto 27.6 % (18.3-44.2); Mean Corpuscular HGB Conc 31.6 g/dl (32-36); Mean Corpuscular Hemoglobin 29.4 pg (26-34); Mean Corpuscular Volume 92.9 fl (80-100); Mean Platelet Volume 9.6 fl (7.4-10.4); Monocytes Absolute Auto 0.4 K/mm3 (0.1-0.6); Neutrophils Absolute Auto 4.3 K/mm3 (1.3-6.7); Neutrophils Percent Auto 62.7 % (45.5-73.1); Platelet Count Result 175 k/mm3 (150-375); Red Blood Count 4.39 M/mm3 (4.2-5.4); White Blood Count 6.8 K/mm3 (4.5-10.0)
[2021-09-09 07:40] LABS: Alanine Aminotransferase 15 U/L (4-35); Albumin Level 3.2 g/dL (3.5-5.1); Alkaline Phosphatase 79 U/L (38-126); Anion Gap 5 mmol/L (8-16); Aspartate Amino Transferase 28 U/L (14-36); Bilirubin,Total 0.4 mg/dL (0.2-1.3); Blood Urea Nitrogen 3 mg/dL (7-17); Calcium 8.2 mg/dL (8.4-10.2); Carbon Dioxide 28 mmol/L (22-30); Chloride 103 mmol/L (98-107); Estimated CRCL calculation 146 ml/min; Estimated Glomerular Filt Rate > 60; Glucose 212 mg/dL (65-110); Magnesium 1.7 mg/dL (1.6-2.3); Sodium 136 mmol/L (137-145)
[2021-09-09 08:00] VITALS: PULSE 78; RESP 18; O2SAT 96
[2021-09-09 08:02] LABS: Glucose Point of Care 200 mg/dl (65-105)
[2021-09-09] MEDS: FLUTICASONE/SALMETEROL 115-21 MCG INHALER 1 PUFF 2 PUFF INHALATION ×2 (08:23→21:08)
[2021-09-09 08:25] VITALS: O2SAT 96
--- NOTE | 2021-09-09 08:28 | WPDGIPROGNO ---
Progress Note: A&P Assessment and Plan (1) Coffee ground emesis: Code(s): K92.0 - Hematemesis Status: Acute Assessment and Plan: Resolved coffee-ground emesis. Appears to be associated with her ileus. This appears to represent stress gastritis. I would not pursue invasive testing at this time. Probably beneficial to maintain her on Protonix for several months after discharge if not indefinitely. (2) Dementia: Code(s): F03.90 - Unspecified dementia without behavioral disturbance Status: Acute (3) Ileus: Code(s): K56.7 - Ileus, unspecified Status: Acute Assessment and Plan: Ileus appears resolved at this point. Be given her decreased mobility using laxatives on a regular basis peers prudent after discharge. 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 coli] as the cause of diseases classified elsewhere; Z16.12 - Extended spectrum beta lactamase (ESBL) resistance Status: Acute Assessment and Plan: UTI identified may contribute to her initial ileus vomiting. Now under treatment. Subjective Date/time seen: 09/09/21 08:28 Patient states she feels good. Anxious to go home. No longer with nausea vomiting. Denies abdominal pain. Tolerating at this point. Review of Systems Review of Systems: All systems reviewed & are unremarkable except as noted in HPI and below Exam Narrative: Physical exam reveals patient be comfortable. Lying in bed. HEENT exam reveals no icterus. Lungs are clear. Heart without murmur. Abdomen bowel sounds are present soft no organomegaly nontender. Objective Data Vital Signs Vital Signs: Vital Signs - 24 hr 09/08/21 09:30 09/08/21 14:00 09/08/21 20:49 Temperature 96.3 F L Pulse Rate 78 72 Respiratory Rate 24 H 20 Blood Pressure 165/57 H Pulse Oximetry 92 92 93 09/08/21 21:28 09/09/21 05:58 09/09/21 08:25 Temperature 97.7 F 96.9 F L Pulse Rate 76 78 Respiratory Rate 18 18 Blood Pressure 139/50 L 169/48 H Pulse Oximetry 91 96 96 Intake/Output Intake/Output: Intake & Output 09/06/21 09/07/21 09/08/21 09/09/21 23:59 23:59 23:59 23:59 Intake Total 2600 2680 2480 1850 Output Total 275 Balance 2325 2680 2480 1850 Meds/Results Medications: Active Medications Generic Name Dose Route Start Last Admin Trade Name Freq PRN Reason Stop Dose Admin Dextrose 12.5 gm 09/05/21 14:52 Dextrose 50% 25 Gm/50 Ml Syringe IV PUSH PRN PRN Hypoglycemia Protocol Glucagon 1 mg 09/05/21 14:52 Glucagon For Inj 1 Mg Vial IM PRN PRN Hypoglycemia Protocol Glucose 15 gm 09/05/21 14:52 Glucose Oral Gel 15 Gm Of Glucse In 37.5 Gm Tube PO PRN PRN Hypoglycemia Protocol Sodium Chloride 1,000 mls @ 80 mls/hr 09/05/21 11:35 09/09/21 05:11 Normal Saline Iv IV CONT 80 mls/hr .[id number] YONG Administration Dextrose 1,000 mls @ 100 mls/hr 09/05/21 14:52 Dextrose 5% 1,000 Ml IVPB PRN PRN Hypoglycemia Protocol Imipenem/Cilastatin Sodium 500 mg in 100 mls @ 300 mls/hr 09/07/21 18:00 09/09/21 05:11 Primaxin 500 Mg/D5w 100 Ml IVPB 150 mls/hr Q6HR YONG Administration Insulin Aspart 3 - 6 units 09/08/21 12:00 09/08/21 16:55 Insulin Aspart (*Bkc) 100 Units/Ml SUB-Q Not Given TIDWM [facility] Protocol Insulin Glargine 5 units 09/08/21 10:00 09/08/21 09:34 Insulin Glargine (*Bkc) 100 Units/Ml SUB-Q 5 units 1000 YONG
[2021-09-09] MEDS: PANTOPRAZOLE SODIUM IV 40 MG VIAL IV PUSH ×2 (08:36→20:57)
[2021-09-09] MEDS: polyethylene glycoL 3350 17 GM POWD.PACK PO (08:37)
[2021-09-09] MEDS: INSULIN GLARGINE (*BKC) 100 UNITS/ML SUB-Q (10:46)
[2021-09-09 11:48] LABS: Glucose Point of Care 214 mg/dl (65-105)
[2021-09-09] MEDS: INSULIN ASPART (*BKC) 100 UNITS/ML SUB-Q (12:06)
[2021-09-09] MEDS: ONDANSETRON INJ 4 MG/2 ML VIAL IV PUSH ×2 (12:50→17:48)
[2021-09-09 14:00] VITALS: BP 146/78; PULSE 81; RESP 17; TEMP 36; O2SAT 95
[2021-09-09 16:44] LABS: Glucose Point of Care 160 mg/dl (65-105)
--- NOTE | 2021-09-09 18:35 | PM.IMPN ---
Progress Note: A&P Assessment and Plan (1) Hematemesis: Code(s): K92.0 - Hematemesis Status: Acute (2) Ileus: Code(s): K56.7 - Ileus, unspecified Status: Acute (3) Gastritis: Code(s): K29.70 - Gastritis, unspecified, without bleeding Status: Acute (4) Gastroesophageal reflux disease: Code(s): K21.9 - Gastro-esophageal reflux disease without esophagitis Status: Acute (5) Type 2 diabetes mellitus with hyperglycemia: Qualifiers: Diabetes mellitus usp insulin use: with usp use Qualified Code(s): E11.65 - Type 2 diabetes mellitus with hyperglycemia; Z79.4 - keno terminal operator (current) use of insulin Code(s): E11.65 - Type 2 diabetes mellitus with hyperglycemia Status: Chronic (6) Urinary tract infection due to extended-spectrum beta lactamase (ESBL) producing Escherichia coli: Code(s): N39.0 - Urinary tract infection, site not specified; B96.29 - Other Escherichia coli [E. coli] as the cause of diseases classified elsewhere; Z16.12 - Extended spectrum beta lactamase (ESBL) resistance Status: Acute (7) Coffee ground emesis: Code(s): K92.0 - Hematemesis Status: Acute (8) Obstructive sleep apnea on CPAP: Code(s): G47.33 - Obstructive sleep apnea (adult) (pediatric); Z99.89 - Dependence on other enabling machines and devices Status: Chronic (9) Dementia: Code(s): F03.90 - Unspecified dementia without behavioral disturbance Status: Acute Additional Plan 09/05/21 The patient presented to the emergency department today with abdominal discomfort, nausea, and vomiting. CT shows evidence of partial small-bowel obstruction versus ileus. NG tube has been inserted for decompression and she will of course be NPO for now. Given reports of possible coffee-ground emesis she has been started on a Protonix drip. Hemoglobin and hematocrit will be trended. Will resume basal insulin at a lower dose as her random glucose today was 385. Initiate sliding scale insulin, Accu-Cheks, and hypoglycemic protocol. Check hemoglobin A1c. The rest of her home medications will be reviewed and transitioned to IV form if appropriate. CT scan and obstructive series consistent with either ileus or more likely partial small bowel obstruction. Bowel sounds are present. Would recommend NG tube decompression and after distention has improved then small bowel series should be performed. GI endoscopy is contraindicated in the face possible obstruction. Because of the coffee-ground emesis patient will be placed on proton pump inhibitor therapy. Likely this on the basis of stress gastritis. Her hemoglobin is stable at present suggesting minimal actual bleeding. 09/06/21 Small bowel series reviewed Ileus vs pSBO cont NGT Pantoprazole Morphine p.r.n. Zofran p.r.n. Insulin sliding scale while NPO may need abx will monitor VS and CBC remains hyperglycemic on NS anticipate change to D5NS tomorrow GI recs appreciated 09/07/21 cough w eating -> ST eval ESBL Ecoli start Carbapenem dc NGT today trial of clears BG still elevated low dose lantus ordered pt reporting epigastric pain ->carafate / PPI cont current care GI recs appreciated 09/08/21 advance diet cont tx for UTI KUB for ongoing pain Start tramadol Continue bowel regimen GI recs appreciated anticipate return to [facility] on saturday BG not at goal lantus 10U q am 09/09/21 tolerating PO day 3 of abx for UTI possible dc to facility tomorrow BG still not at goal BP not at goal Amlodipine added to MAR cont to monitor Subjective Date/time seen: 09/09/21 18:35 pt doing ok still complains of pain but PE is not consistent , tolerating PO Exam Narrative: GEN: NAD, cooperative, oriented HEENT: NCAT, MMM, EOMI Neck: no JVD Heart: S1S2 RRR Lungs: CTA B/l TTP in all quadrants Abd: soft, NT, ND, bowel sounds normoactive Ext: moves all, no cyanosis, no clubbing, no dana
[2021-09-09] MEDS: POTASSIUM CHLORIDE 20 MEQ PACKET (FOR LIQUID) 60 MEQ PO (20:56)
[2021-09-09] MEDS: amLODIPine BESYLATE 5 MG TABLET PO (20:57)
[2021-09-09 21:12] VITALS: PULSE 78; O2SAT 95
[2021-09-09 21:59] VITALS: BP 157/56; PULSE 84; RESP 12; TEMP 36; O2SAT 95
--- NOTE | 2021-09-10 01:00 | PC.NURSE ---
Daylight Savings Time For Daylight Savings Time Ending in the Fall - Clocks are moved back. For Daylight Savings Time Beginning in the Spring - Clocks are moved ahead. For [facility], the time of change occurs at 0200 hrs. Time is taken from the ms sql server developer. This entry on the patient's chart recognizes the change in time reflected during documentation. Example: 2 entries for vital signs may be charted for 0200 hrs.
[2021-09-10] MEDS: MORPHINE SULFATE (*CRX) 4 MG/ML INJ 3 MG IV PUSH ×2 (03:32→06:56)
[2021-09-10 05:44] VITALS: BP 168/59; PULSE 75; RESP 18; TEMP 36.7; O2SAT 98
[2021-09-10] MEDS: SUCRALFATE SUSP 100 MG/ML 10 ML UDC 1000 MG PO ×2 (06:56→11:58)
[2021-09-10 07:06] LABS: Glucose Point of Care 171 mg/dl (65-105)
[2021-09-10] MEDS: oxyCODONE/ACETAMINOPHEN (*CRX) 5-325 MG TABLET 1 TABLET PO (08:45)
[2021-09-10 08:49] LABS: Glucose Point of Care 189 mg/dl (65-105)
[2021-09-10] MEDS: polyethylene glycoL 3350 17 GM POWD.PACK PO (08:49)
[2021-09-10] MEDS: amLODIPine BESYLATE 5 MG TABLET PO (08:49)
[2021-09-10] MEDS: FLUTICASONE/SALMETEROL 115-21 MCG INHALER 1 PUFF 2 PUFF INHALATION (09:13)
[2021-09-10 09:14] VITALS: O2SAT 96
[2021-09-10] MEDS: INSULIN GLARGINE (*BKC) 100 UNITS/ML SUB-Q (11:57)
[2021-09-10 12:13] LABS: Glucose Point of Care 194 mg/dl (65-105)
[2021-09-10] MEDS: traMADol HCL (*CRX) 50 MG TABLET PO (13:27)
[2021-09-10 15:55] VITALS: BP 143/59; PULSE 74; RESP 18; TEMP 36.6; O2SAT 99
[2021-09-10 17:05] LABS: Glucose Point of Care 173 mg/dl (65-105)
--- NOTE | 2021-09-10 17:32 | PM.DS ---
DS: Admitting Diagnosis Discharge Date 09/10/21 Admitting Diagnosis (1) Hematemesis: Code(s): K92.0 - Hematemesis Status: Acute (2) Ileus: Code(s): K56.7 - Ileus, unspecified Status: Acute (3) Gastritis: Code(s): K29.70 - Gastritis, unspecified, without bleeding Status: Acute (4) Gastroesophageal reflux disease: Code(s): K21.9 - Gastro-esophageal reflux disease without esophagitis Status: Acute (5) Type 2 diabetes mellitus with hyperglycemia: Qualifiers: Diabetes mellitus snf insulin use: with snf use Qualified Code(s): E11.65 - Type 2 diabetes mellitus with hyperglycemia; Z79.4 - rodent exterminator (current) use of insulin Code(s): E11.65 - Type 2 diabetes mellitus with hyperglycemia Status: Chronic DS: Discharge Diagnosis Discharge Diagnosis (1) Chronic pain: Code(s): G89.29 - Other chronic pain Status: Acute (2) Urinary tract infection due to extended-spectrum beta lactamase (ESBL) producing Escherichia coli: Code(s): N39.0 - Urinary tract infection, site not specified; B96.29 - Other Escherichia coli [E. coli] as the cause of diseases classified elsewhere; Z16.12 - Extended spectrum beta lactamase (ESBL) resistance Status: Acute (3) Coffee ground emesis: Code(s): K92.0 - Hematemesis Status: Acute (4) Gastritis: Code(s): K29.70 - Gastritis, unspecified, without bleeding Status: Acute (5) Obstructive sleep apnea on CPAP: Code(s): G47.33 - Obstructive sleep apnea (adult) (pediatric); Z99.89 - Dependence on other enabling machines and devices Status: Chronic (6) Gastroesophageal reflux disease: Code(s): K21.9 - Gastro-esophageal reflux disease without esophagitis Status: Acute (7) Hematemesis: Code(s): K92.0 - Hematemesis Status: Acute (8) Upper gastrointestinal hemorrhage: Code(s): K92.2 - Gastrointestinal hemorrhage, unspecified Status: Acute (9) Dementia: Code(s): F03.90 - Unspecified dementia without behavioral disturbance Status: Acute (10) Ileus: Code(s): K56.7 - Ileus, unspecified Status: Acute (11) Type 2 diabetes mellitus with hyperglycemia: Qualifiers: Diabetes mellitus snf insulin use: with parts counterman use Qualified Code(s): E11.65 - Type 2 diabetes mellitus with hyperglycemia; Z79.4 - rodent exterminator (current) use of insulin Code(s): E11.65 - Type 2 diabetes mellitus with hyperglycemia Status: Chronic DS: Summary Hospital Course Reason for hospitalization: pSBO vs ileus Hospital Course: 71-year-old female presented to the emergency room with abdominal discomfort nausea vomiting. CT showed e vidence of partial small-bowel obstruction versus ileus. NG tube was inserted for decompression and she was placed in NPO status. Given reports of possible coffee-ground emesis she was started on a Protonix drip. GI was consulted and recommended conservative management and snf PPI. Hemoglobin and hematocrit were trended and remained stable and her pSBO resolved. Her diet was advanced and pt did well. Her diabetes was managed with basal insulin and sliding scale insulin, Accu-Cheks, and hypoglycemic protocol. Hemoglobin A1c was 9.9 and pt was discharged on her outpt regimen of both oral antihyperglycemic and insulin. pt was also found to have a ESBL E coli uncomplicated UTI that was treated w carbapenem. At time of discharge pt was tolerating diet and had returned to baseline status. Status at Discharge Functional status at discharge: bed bound Overall status at discharge: patient is back to baseline Time Spent with Patient Time attestation: Total time spent providing and/or coordinating discharge services: Time spent: Greater than 30 minutes Exam Narrative: GEN: NAD, cooperative, oriented HEENT: NCAT, MMM, EOMI Neck: no JVD Heart: S1S2 RRR Lungs: CTA Abd: soft, NT, ND, bowel sound
[2021-09-10 18:19] VITALS: BP 148/61; PULSE 84; RESP 16; TEMP 36.8; O2SAT 98
== END 2021-09-10 19:00 | DRG 388 ==
LOC: ANHED 11:38 → ANH3MEDSUR 11:58
PROVIDERS: Physician Assistant; Admitting Provider Family Medicine; Emergency Provider Emergency Medicine; PCP General Practice; Visit Provider Hospitalist
DX: K56.600 Partial intestinal obstruction, unspecified as to cause (principal); K29.01 Acute gastritis with bleeding; N39.0 Urinary tract infection, site not specified; Z16.12 Extended spectrum beta lactamase (ESBL) resistance; J96.11 Chronic respiratory failure with hypoxia; F32.3 Major depressive disorder, single episode, severe with psychotic features; B96.29 Other Escherichia coli [E. coli] as the cause of diseases classified elsewhere; K56.7 Ileus, unspecified; K21.9 Gastro-esophageal reflux disease without esophagitis; E11.65 Type 2 diabetes mellitus with hyperglycemia; F03.90 Unspecified dementia, unspecified severity, without behavioral disturbance, psychotic disturbance, mood disturbance, and anxiety; G47.33 Obstructive sleep apnea (adult) (pediatric); M81.0 Age-related osteoporosis without current pathological fracture; E78.5 Hyperlipidemia, unspecified; D52.9 Folate deficiency anemia, unspecified; Z79.4 Long term (current) use of insulin; Z86.73 Personal history of transient ischemic attack (TIA), and cerebral infarction without residual deficits; Z85.3 Personal history of malignant neoplasm of breast; Z90.49 Acquired absence of other specified parts of digestive tract; Z99.81 Dependence on supplemental oxygen
CPT/HCPCS: 36415; 74018; 74176; 74240; 74248; 80048; 80053; 81001; 82271; 82274; 82948; 83036; 83605; 83735; 83986; 84100; 85014; 85018; 85025; 85027; 85610; 85730; 86850; 86900; 86901; 87077; 87086; 87088; 87186; 94640; 96374; 99285; A9270; C9113; G0378; J0131; J0743; J1815; J2060; J2270; J2405; J7030; J7060

== ENCOUNTER 2023-04-05 02:26 | Emergency (ER) | payer OTHER, SELFPAY ==
[2023-04-05] VITALS (8 sets, daily range): BP systolic 126–147; BP diastolic 52–85; PULSE 73–85; RESP 14–28; TEMP 37.2; O2SAT 96–98
--- NOTE | ~2023-04-05 | CT_ITS ---
CT Scan of the Chest without Contrast: Clinical Indication: Right breast mass Technique: Contiguous sections were acquired throughout the chest without intravenous contrast. Dose reduction technique was used on this scan by utilizing automated exposure control and iterative recon struction technique. The dose-length product (DLP) was 546.59 mGy-cm. Findings: There is no evidence of any significant mediastinal, hilar or axillary lymphadenopathy. There is exte nsive atherosclerotic calcification of the descending thoracic aorta. Right breast is largely exclude d from the [id number]. There is no evidence of pleural or pericardial effusion. The lungs are clear, aside from mild dependent atelectatic change bilaterally. Images through the upper abdomen reveal no abnormalities. Impression: Right breast is largely excluded from the [id number]-[id number]. No distinct abnormality seen in the visualiz ed portions. Recommend diagnostic mammography/sonography to evaluate any breast abnormality. Mild bibasilar pulmonary atelectatic change. Reviewed, dictated and finalized at location . Impression: Right breast is largely excluded from the [id number]. No distinct abnormalit y seen in the visualized portions. Recommend diagnostic mammography/sonography to evaluate any breast abnormality. Mild bibasilar pulmonary atelectatic change.
[2023-04-05 03:35] LABS: Basophils Absolute Auto 0.1 K/mm3 (0.0-0.1); Basophils Percent Auto 0.6 % (0.2-1.2); Eosinophils Absolute Auto 0.2 K/mm3 (0-0.3); Eosinophils Percent Auto 1.3 % (0-4.4); Hematocrit 37.5 % (37.0-47.0); Hemoglobin 11.9 g/dL (12.0-15.0); Immature Granulocyte Absolute 0.11 K/mm3 (0.00-0.031); Immature Granulocyte Percent A 0.9 % (0-0.5); Lymphocytes Absolute Auto 2.18 K/mm3 (0.9-3.2); Lymphocytes Percent Auto 17.4 % (18.3-44.2); Mean Corpuscular HGB Conc 31.7 g/dl (32-36); Mean Corpuscular Hemoglobin 28.7 pg (26-34); Mean Corpuscular Volume 90.4 fl (80-100); Mean Platelet Volume 10.5 fl (7.4-10.4); Monocytes Absolute Auto 0.6 K/mm3 (0.1-0.6); Monocytes Percent Auto 4.5 % (2.6-8.5); Neutrophils Absolute Auto 9.5 K/mm3 (1.3-6.7); Neutrophils Percent Auto 75.3 % (45.5-73.1); Platelet Count Result 241 k/mm3 (150-375); Red Blood Count 4.15 M/mm3 (4.2-5.4); Red Cell Distribution Width 14.5 % (11.5-14.5); White Blood Count 12.5 K/mm3 (4.5-10.0)
[2023-04-05 03:48] LABS: Lactic Acid Reflex 1.1 mmol/L (0.7-2.0)
[2023-04-05 03:50] LABS: Alanine Aminotransferase 22 U/L (6-35); Albumin Level 3.7 g/dL (3.5-5.1); Alkaline Phosphatase 112 U/L (38-126); Anion Gap 6 mmol/L (8-16); Appearance Urine Cloudy (Clear); Aspartate Amino Transferase 35 U/L (14-36); Bacteria Urine 4+ /hpf; Bilirubin Urine Negative (Negative); Bilirubin,Total 0.9 mg/dL (0.2-1.3); Blood Urea Nitrogen 6 mg/dL (7-17); Blood Urine 2+ (Negative); Calcium 8.7 mg/dL (8.4-10.2); Carbon Dioxide 33 mmol/L (22-30); Chloride 100 mmol/L (98-107); Color Urine Yellow (Yellow); Estimated CRCL calculation 121 ml/min; Estimated Glomerular Filt Rate > 60; Glucose 186 mg/dL (65-110); Glucose Urine UA Negative (Negative); Ketones Urine Negative (Negative); Leukocyte Esterase Ur 3+ LEU/UL (Negative); Nitrate Urine Positive (Negative); Non Pathogenic Casts 0-2; Potassium 3.8 mmol/L (3.4-5.0); Protein Urine Trace mg/dL (Negative); Sodium 139 mmol/L (137-145); Squamous Epithelial Cell Urine None seen /hpf (Few); WBC Clumps Urine Present /HPF; WBC Urine >100 /hpf; White Blood Cell Casts Urine Present /lpf
[2023-04-05 03:51] LABS: Add Urine Microscopic? YES
[2023-04-05 04:04] LABS: Procalcitonin 0.1 ng/mL
--- NOTE | 2023-04-05 05:37 | ED.GENADULT ---
HPI - General Adult General Chief complaint: Unspecified Stated complaint: mass under R breast Time Seen by Provider: 04/05/23 02:38 History of Present Illness HPI narrative: Patient 73-year-old female who presents the emergency department with chief complaint of redness and swelling of her right breast. Patient states for some time she has been having discomfort around her breast and has become progressively more tender and is slightly red the custodial today decided to call EMS and have the patient transported to the emergency department Related Data Home Medications Medication Instructions Recorded Confirmed acetaminophen 325 mg tablet 650 mg PO BID PRN pain 12/13/20 09/05/21 (Tylenol) atorvastatin 20 mg tablet 20 mg PO DAILY 12/13/20 09/05/21 baclofen 10 mg tablet 10 mg PO BID 12/13/20 09/05/21 buspirone 10 mg tablet 10 mg PO BID 12/13/20 09/05/21 clonazepam 0.5 mg tablet 0.5 mg PO BID 12/13/20 09/05/21 ergocalciferol (vitamin D2) 50,000 50,000 unit PO MONTHLY 12/13/20 09/05/21 unit tablet fluticasone furoate 100 1 inh inhalation DAILY 12/13/20 09/05/21 mcg-vilanterol 25 mcg/dose inhalation powder (Breo Ellipta) gabapentin 300 mg capsule 300 mg PO TID 12/13/20 09/05/21 hydrocodone 5 mg-acetaminophen 325 1 tablet PO HS pain 12/13/20 09/06/21 mg tablet loratadine 10 mg capsule 10 mg PO DAILY PRN Allergy Symptoms 12/13/20 09/05/21 mirtazapine 15 mg tablet 15 mg PO HS 12/13/20 09/05/21 ondansetron HCl 4 mg tablet 4 mg PO Q8H PRN Nausea 12/13/20 09/05/21 (Zofran) primidone 50 mg tablet 100 mg PO DAILY 12/13/20 09/05/21 sertraline 100 mg tablet 50 mg PO DAILY 12/13/20 09/05/21 glipizide 5 mg tablet 5 mg PO DAILY 09/05/21 09/05/21 glycopyrrolate 1 mg tablet 1 mg PO TID 09/05/21 09/05/21 multivitamin 1 tablet PO DAILY 09/05/21 09/05/21 sennosides 8.6 mg tablet (senna) 8.6 mg PO BID 09/05/21 09/05/21 Allergies Allergy/AdvReac Type Severity Reaction Status Date / Time iodine Allergy Unknown Unknown Verified 01/29/22 10:52 Penicillins Allergy Unknown Unknown Verified 01/29/22 10:52 Sulfa (Sulfonamide Allergy Unknown Unknown Verified 01/29/22 10:52 Antibiotics) sulfur dioxide Allergy Unknown Unknown Verified 01/29/22 10:52 Review of Systems Review of Systems: A 10 system review of systems was completed on the patient and is negative except for what is stated in the HPI. Nursing and ancillary documentation was reviewed. 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 Patient denies and reports no treatment was rendered. Cerebrovascular accident Chronic respiratory failure with hypoxia, on home O2 therapy 2 L nasal cannula. Dementia Folate deficiency anemia (2017) Gastroesophageal reflux disease Hyperlipidemia Insulin dependent diabetes mellitus Obstructive sleep apnea on CPAP Osteoporosis Severe recurrent major depressive disorder with psychosis Ulcerative colitis Surgical History Surgical History History of laparoscopic cholecystectomy (05/13/19) History of left breast biopsy (12/17/16) Family History Family History Other Unknown family medical history Social History Social History Social History: Healthcare power of staff attorney: Elaina Whitfield, niece. Code status: Full code. Smoking status: Never smoker Second hand tobacco smoke exposure: No Alcohol intake: never Substance use: never Substance use type: does not use Additional living arrangements comments: Patient is a long-term resident at [facility]. Additional occupation/education comments: Disabled. Exam Narrative: GENERAL: Well-appearing, well-nourished, and in no acute dis
[2023-04-05] MEDS: MORPHINE SULFATE (*CRX) 4 MG/ML INJ 2 MG IV PUSH (05:47)
--- NOTE | 2023-04-05 07:19 | PC.NURSE ---
Patient reports received from KYLE Riggs. All questions answered and care of patient assumed.
[2023-04-05] MEDS: HYDROcodone/acetaminophen (*CRX) 5-325 MG TABLET 1 TAB PO (09:17)
--- NOTE | 2023-04-05 10:26 | PC.NURSE ---
Patient report given to EMS at time of transport. PIV removed. DC VSS.
== END 2023-04-05 10:29 ==
PROVIDERS: Emergency Provider Emergency Medicine
DX: N61.0 Mastitis without abscess (principal); N39.0 Urinary tract infection, site not specified; F03.90 Unspecified dementia, unspecified severity, without behavioral disturbance, psychotic disturbance, mood disturbance, and anxiety; J96.11 Chronic respiratory failure with hypoxia; E78.5 Hyperlipidemia, unspecified; E11.9 Type 2 diabetes mellitus without complications; D52.9 Folate deficiency anemia, unspecified; G47.33 Obstructive sleep apnea (adult) (pediatric); K51.90 Ulcerative colitis, unspecified, without complications; K21.9 Gastro-esophageal reflux disease without esophagitis; M81.0 Age-related osteoporosis without current pathological fracture; F33.3 Major depressive disorder, recurrent, severe with psychotic symptoms; Z99.81 Dependence on supplemental oxygen; Z86.73 Personal history of transient ischemic attack (TIA), and cerebral infarction without residual deficits; Z90.49 Acquired absence of other specified parts of digestive tract; Z79.84 Long term (current) use of oral hypoglycemic drugs; Z79.4 Long term (current) use of insulin
CPT/HCPCS: 36415; 71250; 80053; 81001; 83605; 84145; 85025; 87040; 87077; 87086; 87147; 87181; 87186; 96374; 99284; A9270; J2270

== ENCOUNTER 2023-12-03 14:54 | Outpatient (NON) | payer OTHER, SELFPAY ==
[2023-12-03 15:26] LABS: Influenza A QL RT-PCR Negative (Negative); Influenza B QL RT-PCR Negative (Negative); RSV RNA, RT-PCR Negative (Negative); SARS-CoV-2 RNA PCR Negative (Negative)
== END 2023-12-03 14:55 | disposition home or self-care (01) ==
LOC: ANHLAB 15:00
PROVIDERS: Visit Provider Hospitalist
DX: R09.81 Nasal congestion (principal); Z20.822 Contact with and (suspected) exposure to COVID-19
CPT/HCPCS: 87637

== ENCOUNTER 2025-05-03 08:45 | Outpatient (CLI) | payer MEDICARE, MEDICAID, SELFPAY ==
--- NOTE | ~2025-05-03 | US_ITS ---
EXAMINATION TYPE: US breast RT limited COMPARISON: NONE REASON FOR STUDY: LUMP IN RIGHT BREAST-OVERLAPPING TECHNIQUE: Targeted sonographic evaluation of the right breast was performed. INTERPRETATION: At the 10:00 position right breast, 5 cm from the nipple, there is a 1.0 x 1.0 x 0.8 cm hypoechoic so lid mass, with mildly lobulated borders. Lesion is wider than tall. No posterior shadowing. There is probable dense periventricular tissue and/or dilated ducts at the 9:00 position right breast, 10 cm f rom the nipple. No solid or intraductal mass seen in this region. IMPRESSION: 1.0 cm probable solid mass at the 10:00 position right breast at the area of palpable concern. Given the presence of a palpable mass, ultrasound-guided biopsy is recommended to establish a histologic di agnosis. Probable dilated ducts or dense fibroglandular tissue at the 9:00 position right breast at the other area of palpable concern. No discrete solid or intraductal mass seen. Please note that due to limitations in patient mobility and positioning, mammography could not be per formed. BI-RADS CATEGORY: BI-RADS 4: Suspicious. Biopsy should be considered. Reviewed, dictated and finalized at location M. IMPRESSION: 1.0 cm probable solid mass at the 10:00 position right breast at the area of pa lpable concern. Given the presence of a palpable mass, ultrasound-guided biopsy is recommended to establish a histologic diagnosis. Probable dilated ducts or dense fibroglandular tissue at the 9:00 position righ t breast at the other area of palpable concern. No discrete solid or intraducta l mass seen. Please note that due to limitations in patient mobility and positioning, mammog jeff could not be performed. BI-RADS CATEGORY: BI-RADS 4: Suspicious. Biopsy should be considered.
== END 2025-05-03 08:46 | disposition home or self-care (01) ==
LOC: CHSIMG 08:49
DX: N63.15 Unspecified lump in the right breast, overlapping quadrants (principal); R92.8 Other abnormal and inconclusive findings on diagnostic imaging of breast
CPT/HCPCS: 76642